=== PATIENT | male | born 1940 | race Caucasian/White ===

== ENCOUNTER → 2018-08-20 | Outpatient (CLI) | payer MEDICARE, OTHER ==
--- NOTE | 2018-08-20 12:55 | US ---
EXAMINATION TYPE: US carotid duplex BILAT DATE OF EXAM: 08/20/2018 COMPARISON: NONE CLINICAL HISTORY: I65.23 Occlusion/Stenosis Bilateral Carotid Arteri. R/O carotid artery stenosis. EXAM MEASUREMENTS: RIGHT: Peak Systolic Velocity (PSV) cm/sec ----- Right CCA: 90.8 ----- Right ICA: 115.7 ----- Right ECA: 268.4 ICA/CCA ratio: 1.3 RIGHT: End Diastole cm/sec ----- Right CCA: 14.9 ----- Right ICA: 25.6 ----- Right ECA: 3.6 LEFT: Peak Systolic Velocity (PSV) cm/sec ----- Left CCA: 84.9 ----- Left ICA: 118.9 ----- Left ECA: 279.0 ICA/CCA ratio: 1.4 LEFT: End Diastole cm/sec ----- Left CCA: 16.0 ----- Left ICA: 22.0 ----- Left ECA: 10.7 VERTEBRALS (direction of flow): Right Vertebral: Antegrade Left Vertebral: Antegrade Rhythm: Normal IMPRESSION: Moderate wall changes seen at bilateral carotid bifurcations. Echogenic plaque with shado wing seen bilateral carotid bulbs. Elevated velocities greater than 125 cm/s obtained bilateral ECAs. Criteria for Assigning % of Stenosis / Diameter reduction (Estimation based on the indirect measurements of the internal carotid artery velocities (ICA PSV). 1. Normal (no stenosis)=ICA PSV < 125 cm/s: ratio < 2.0: ICA EDV<40 cm/s. 2. Less than 50% stenosis=ICA PSV < 125 cm/s: ratio < 2.0: ICA EDV<40 cm/s. 3. 50 to 69% stenosis=ICA PSV of 125 to 230 cm/s: ration 2.0 ? 4.0: ICA EDV 40-100 cm/s. 4. Greater than 70% stenosis to near occlusion= ICA PSV > 230 cm/s: ratio > 4.0: ICA EDV > 100 cm/s. 5. Near occlusion= ICA PSV velocities may be low or undetectable: variable ratio and ICA EDV. 6. Total occlusion=unable to detect flow.
== END | disposition home or self-care (01) ==
LOC: RADUSWWP 10:50
PROVIDERS: ATTEND Family Medicine
DX: I65.23 Occlusion and stenosis of bilateral carotid arteries (principal)
CPT/HCPCS: 93880

== ENCOUNTER 2022-05-16 11:16 | Inpatient (IN) | payer MEDICARE, OTHER ==
[2022-05-16] MEDS ORDERED: SODIUM CHLORIDE 0.9% 500 ML 500 ML IV STA (14:07)
[2022-05-16 14:42] LABS: INR 0.9 (<1.2); Partial Thromboplastin Time 24.7 sec (22.0-30.0); Prothrombin Time 9.7 sec (9.0-12.0)
[2022-05-16 14:46] LABS: ALT 29 U/L (4-49); AST 25 U/L (17-59); African American GFR (CKD) >90 (>60 ml/min/1.73 sqM); Albumin 3.7 g/dL (3.5-5.0); Alkaline Phosphatase 85 U/L (38-126); Anion Gap 3 mmol/L; Blood Urea Nitrogen 24 mg/dL (9-20); Calcium 8.3 mg/dL (8.4-10.2); Carbon Dioxide 29 mmol/L (22-30); Chloride 107 mmol/L (98-107); Glucose 120 mg/dL (74-99); Magnesium 2.1 mg/dL (1.6-2.3); Non-African American GFR(CKD) 81 (>60 ml/min/1.73 sqM); Potassium 4.1 mmol/L (3.5-5.1); Sodium 139 mmol/L (137-145); Total Bilirubin 0.9 mg/dL (0.2-1.3); Total Protein 6.2 g/dL (6.3-8.2)
[2022-05-16 15:05] LABS: Anisocytosis Moderate; HCT 24.1 % (39.0-53.0); HGB 7.3 gm/dL (13.0-17.5); Hypochromasia Marked; MCH 33.1 pg (25.0-35.0); MCHC 30.4 g/dL (31.0-37.0); MCV 109.1 fL (80.0-100.0); Macrocytosis Marked; Mean Platelet Volume 10.9; Platelet Count 208 k/uL (150-450); Poikilocytosis Moderate; RBC 2.21 m/uL (4.30-5.90); RDW 21.6 % (11.5-15.5)
[2022-05-16 15:10] LABS: WBC 1.1 k/uL (3.8-10.6)
--- NOTE | 2022-05-16 15:10 | ED ---
General Adult HPI - General Chief complaint: GI Bleed Stated complaint: abn labs Time Seen by Provider: 05/16/22 13:53 Source: patient, family, RN notes reviewed, old records reviewed Mode of arrival: ambulatory Limitations: altered mental status (Dementia) - History of Present Illness Initial comments: This is an 81-year-old male who presents emergency Department with family giving most the history because of the patient's significant dementia. Patient is sent in because he [facility] they found that his hemoglobin had dropped and family did noted bright red blood and some clotting in his diaper. He himself has not been complaining of anything. Family states she's always tired and they have not noticed any change. He also complains on a regular basis of shortness of breath he doesn't look any more short of breath and he has. There's been no history of fever chills the patient had no history of vomiting or diarrhea. The patient's had no recent history of any trauma. - Related Data Allergies Allergy/AdvReac Type Severity Reaction Status Date / Time No Known Allergies Allergy Verified 05/16/22 11:40 Review of Systems ROS Statement: Those systems with pertinent positive or pertinent negative responses have been documented in the HPI. ROS Other: All systems not noted in ROS Statement are negative. Past Medical History Past Medical History: Coronary Artery Disease (CAD), Chest Pain / Angina, Hypertension Additional Past Medical History / Comment(s): Mitral valve, Anemia History of Any Multi-Drug Resistant Organisms: None Reported Past Surgical History: Hernia Repair Additional Past Surgical History / Comment(s): Renal Biopsy Past Psychological History: No Psychological Hx Reported Smoking Status: Never smoker Past Alcohol Use History: None Reported Past Drug Use History: None Reported General Exam - General Exam Comments Initial Comments: GENERAL: Patient is well-developed and well-nourished. Patient is nontoxic and well- hydrated and is in mild distress. ENT: Neck is soft and supple. No significant lymphadenopathy is noted. Oropharynx is clear. Moist mucous membranes. Neck has full range of motion without eliciting any pain. EYES: The sclera were anicteric and conjunctiva are pale. Extraocular movements were intact and pupils were equal round and reactive to light. Eyelids were unremarkable. PULMONARY: Unlabored respirations. Good breath sounds bilaterally. No audible rales rhonchi or wheezing was noted. CARDIOVASCULAR: There is a regular rate and rhythm without any murmurs gallops or rubs. ABDOMEN: Soft and nontender with normal bowel sounds. SKIN: Skin is clear with no lesions or rashes and otherwise unremarkable. NEUROLOGIC: Patient is alert and oriented 2. Cranial nerves II through XII are grossly intact. Motor and sensory are also intact. Normal speech, volume and content. Symmetrical smile. MUSCULOSKELETAL: Normal extremities with adequate strength and full range of motion. LYMPHATICS: No significant lymphadenopathy is noted PSYCHIATRIC: Normal psychiatric evaluation. Limitations: no limitations Course Vital Signs 05/16/22 11:36 Temperature 97.9 F Pulse Rate 60 Respiratory 22 Rate Blood Pressure 111/55 O2 Sat by Pulse 97 Oximetry Medical Decision Making - Medical Decision Making EKG was interpreted by me. EKG shows atrial fibrillation with occasional PVC at 79 bpm QRS is 119 QT interval 392 QTC is 427. Patient's EKG shows no ST segment elevation or depression. Patient's troponin came back elevated. Patient is already on heparin. Patient's hemoglobin was 7.3 again I have no comparison at this time. I interpret the chest x-ray. Chest x-ray showed no acute abnormality or infiltrate or pleural effusion. I spoke with Dr. Tejeda and he agreed to admit the patient admitted the patient I consult cardiology because of the patient's rectal bleeding and did not start the patient at this time on heparin especially because he is having no chest pain or difficulty breathing or - Lab Data Result diagrams: 05/16/22 14:09 05/16/22 14:09 Lab Results 05/16/22 05/16/22 05/16/22 Range/Units 13:50 14:09 14:09 WBC 1.1 L* (3.8-10.6) k/uL RBC 2.21 L (4.30-5.90) m/uL Hgb 7.3 L (13.0-17.5) gm/dL Hct 24.1 L (39.0-53.0) % MCV 109.1 H (80.0-100.0) fL MCH 33.1 (25.0-35.0) pg MCHC 30.4 L (31.0-37.0) g/dL RDW 21.6 H (11.5-15.5) % Plt Count 208 (150-450) k/uL MPV 10.9 Neutrophils % (Manual) 50 % Lymphocytes % (Manual) 42 % Monocytes % (Manual) 6 % Eosinophils % (Manual) 2 % Neutrophils # BATCH ROOM TECHNICIAN Neutrophils # (Manual) 0.55 L (1.3-7.7) k/uL Lymphocytes # (Manual) 0.46 L (1.0-4.8) k/uL Monocytes # (Manual) 0.07 (0-1.0) k/uL Eosinophils # (Manual) 0.02 (0-0.7) k/uL Nucleated RBCs 1 H (0-0) /100 WBC Manual Slide Review Performed Polychromasia Present Hypochromasia Marked Poikilocytosis Moderate Anisocytosis Moderate Anisocytosis (manual) Present Macrocytosis Marked A PT 9.7 (9.0-12.0) sec INR 0.9 (<1.2) APTT 24.7 (22.0-30.0) sec Sodium (137-145) mmol/L Potassium (3.5-5.1) mmol/L Chloride (98-107) mmol/L Carbon Dioxide (22-30) mmol/L Anion Gap mmol/L BUN (9-20) mg/dL Creatinine (0.66-1.25) mg/dL Est GFR (CKD-EPI)AfAm (>60 ml/min/1.73 sqM) Est GFR (CKD-EPI)NonAf (>60 ml/min/1.73 sqM) Glucose (74-99) mg/dL Calcium (8.4-10.2) mg/dL Magnesium (1.6-2.3) mg/dL Total Bilirubin (0.2-1.3) mg/dL AST (17-59) U/L ALT (4-49) U/L Alkaline Phosphatase (38-126) U/L Troponin I (0.000-0.034) ng/mL Total Protein (6.3-8.2) g/dL Albumin (3.5-5.0) g/dL Blood Type Blood Type Confirm O Positive Blood Type Recheck Bld Type Recheck Status Antibody Screen Spec Expiration Date 05/16/22 05/16/22 05/16/22 Range/Units 14:09 14:09 14:09 WBC (3.8-10.6) k/uL RBC (4.30-5.90) m/uL Hgb (13.0-17.5) gm/dL Hct (39.0-53.0) % MCV (80.0-100.0) fL MCH (25.0-35.0) pg MCHC (31.0-37.0) g/dL RDW (11.5-15.5) % Plt Count (150-450) k/uL MPV Neutrophils % (Manual) % Lymphocytes % (Manual) % Monocytes % (Manual) % Eosinophils % (Manual) % Neutrophils # Neutrophils # (Manual) (1.3-7.7) k/uL Lymphocytes # (Manual) (1.0-4.8) k/uL Monocytes # (Manual) (0-1.0) k/uL Eosinophils # (Manual) (0-0.7) k/uL Nucleated RBCs (0-0) /100 WBC Manual Slide Review Polychromasia Hypochromasia Poikilocytosis Anisocytosis Anisocytosis (manual) Macrocytosis PT (9.0-12.0) sec INR (<1.2) APTT (22.0-30.0) sec Sodium 139 (137-145) mmol/L Potassium 4.1 (3.5-5.1) mmol/L Chloride 107 (98-107) mmol/L Carbon Dioxide 29 (22-30) mmol/L Anion Gap 3 mmol/L BUN 24 H (9-20) mg/dL Creatinine 0.88 (0.66-1.25) mg/dL Est GFR (CKD-EPI)AfAm >90 (>60 ml/min/1.73 sqM) Est GFR (CKD-EPI)NonAf 81 (>60 ml/min/1.73 sqM) Glucose 120 H (74-99) mg/dL Calcium 8.3 L (8.4-10.2) mg/dL Magnesium 2.1 (1.6-2.3) mg/dL Total Bilirubin 0.9 (0.2-1.3) mg/dL AST 25 (17-59) U/L ALT 29 (4-49) U/L Alkaline Phosphatase 85 (38-126) U/L Troponin I 0.152 H* (0.000-0.034) ng/mL Total Protein 6.2 L (6.3-8.2) g/dL Albumin 3.7 (3.5-5.0) g/dL Blood Type O Positive Blood Type Confirm Blood Type Recheck No Previous Record Bld Type Recheck Status CABO Indicated Antibody Screen NEGATIVE Spec Expiration Date 05/19/20222308 Disposition Clinical Impression: Non-STEMI (non-ST elevated myocardial infarction), GI bleed, Anemia Disposition: ADMITTED IP TO THIS HOSP Referrals: Osmani Villaseñor DO [Primary Care Provider] - 1-2 days Time of Disposition: 15:55
[2022-05-16 15:33] LABS: Anisocytosis (M) Present; Eosinophils # (M) 0.02 k/uL (0-0.7); Lymphocytes # (M) 0.46 k/uL (1.0-4.8); Monocytes # (M) 0.07 k/uL (0-1.0); Neutrophils # (M) 0.55 k/uL (1.3-7.7); Neutrophils % (M) 50 %; Nucleated Red Blood Cells 1 /100 WBC (0-0); Polychromasia Present; Total Cells Counted 200
--- NOTE | 2022-05-16 16:21 | XR ---
EXAMINATION TYPE: XR chest 2V DATE OF EXAM: 05/16/2022 COMPARISON: NONE HISTORY: Difficulty in breathing. TECHNIQUE: Frontal and lateral views of the chest are obtained. FINDINGS: The osseous structures are demineralized. There is cardiomegaly with atherosclerotic thora cic aorta. There are increased interstitial markings bilaterally. There is small to tiny left greater than right pleural effusions. IMPRESSION: Suspect CHF exacerbation and there is cardiomegaly with mild interstitial edema and smal l to tiny bilateral pleural effusions. Correlate clinically.
[2022-05-16] MEDS ORDERED: IPRATROPIUM-ALBUTEROL 3 ML NEB INHALATION PRN (22:29)
[2022-05-16] MEDS: PANTOPRAZOLE 40 MG/10 ML VIAL IVP SCH (23:13)
[2022-05-16] MEDS: risperiDONE 0.25 MG TAB PO SCH (23:13)
[2022-05-16] MEDS: METOPROLOL TARTRATE 25 MG TAB PO SCH (23:13)
--- NOTE | 2022-05-17 04:33 | HP ---
HISTORY AND PHYSICAL CHIEF COMPLAINT: GI bleed. HISTORY OF PRESENT ILLNESS: This is an 81-year-old gentleman with a past medical history of multiple medical problems including dementia, also had CAD. The patient was admitted in [facility] for some time and subsequently referred to [facility] on the [place] last week, but the patient felt much better. The patient signed out and the patient was noted to have bleeding in the diaper and the patient came to [facility]. Hemoglobin was found to be 7.3, white count is 1.1. The patient was admitted for further evaluation and treatment. Troponin was found to be 0.152 also. There is no history of any fever, rigors, chills. The patient is unable to provide a history, most of the history is taken by discussion with staff and discussion with the family members at the bedside. PAST MEDICAL HISTORY: Reviewed, include CAD. The rest of history and chart are reviewed. HOME MEDICATIONS: List is not available. ALLERGIES: None. FAMILY HISTORY: Could not be taken because of the patient's dementia. SOCIAL HISTORY: Could not be taken because of the patient's dementia. REVIEW OF SYSTEMS: Could not be taken because of the patient's dementia. PHYSICAL EXAMINATION: VITAL SIGNS: Pulse is 60, blood pressure ntd_, respirations 22. HEENT: Conjunctivae pale. Oral mucosa moist. CARDIOVASCULAR: S1, S2 irregular. RESPIRATIONS: Breath sounds diminished at the bases. ABDOMEN: Soft, nontender. LEGS: No edema. No swelling. NERVOUS SYSTEM: No focal deficits. SKIN: No ulcers, rash, bleeding. JOINTS: No active deforming arthropathy. LABS: Reviewed. ASSESSMENT: 1. Anemia with acute lower gastrointestinal bleeding, possibly. 2. Leukopenia. 3. Troponin 0.152. 4. History of atrial fibrillation. 5. History of coronary artery disease. 6. Hypertension. 7. Multiple medical issues. RECOMMENDATIONS AND DISCUSSION: This is an 81-year-old gentleman who presented with multiple complex medical issues, we will monitor the patient closely. Continue the current medication. I would recommend 1 unit transfusion for symptomatic anemia, otherwise hold antiplatelets and anticoagulants. I would recommend Gastroenterology consultation for possible endoscopes. Repeat labs. Prognosis guarded because of multiple complex medical issues. Discussed with the patient and family. Further recommendations to follow. MMODL / IJN: [id number] / MTDD
[2022-05-17 08:06] LABS: Potassium 4.4 mmol/L (3.5-5.1)
[2022-05-17 08:44] LABS: Anisocytosis Moderate; HCT 21.6 % (39.0-53.0); HGB 7.1 gm/dL (13.0-17.5); Hypochromasia Marked; MCH 35.9 pg (25.0-35.0); MCHC 32.7 g/dL (31.0-37.0); MCV 109.7 fL (80.0-100.0); Macrocytosis Marked; Mean Platelet Volume 12.2; Platelet Count 161 k/uL (150-450); Poikilocytosis Slight; RBC 1.97 m/uL (4.30-5.90); RDW 21.6 % (11.5-15.5)
[2022-05-17] MEDS: CYANOCOBALAMIN 500 MCG TAB PO SCH (08:46)
[2022-05-17] MEDS: PANTOPRAZOLE 40 MG/10 ML VIAL IVP SCH (08:47)
[2022-05-17] MEDS: risperiDONE 0.25 MG TAB PO SCH ×2 (08:47→20:23)
[2022-05-17] MEDS: METOPROLOL TARTRATE 25 MG TAB PO SCH ×2 (08:47→20:23)
[2022-05-17 08:50] LABS: WBC 1.1 k/uL (3.8-10.6)
[2022-05-17 10:22] LABS: Eosinophils # (M) 0.02 k/uL (0-0.7); Lymphocytes # (M) 0.66 k/uL (1.0-4.8); Neutrophils # (M) 0.32 k/uL (1.3-7.7); Neutrophils % (M) 29 %; Nucleated Red Blood Cells 0 /100 WBC (0-0); Total Cells Counted 100
[2022-05-17 10:23] LABS: Polychromasia Present
[2022-05-17 10:24] LABS: Poikilocytosis (M) Present
[2022-05-17 10:51] LABS: % Iron Saturation 35.46 (15.00-50.00)
--- NOTE | 2022-05-17 13:08 | P.CRDCN ---
History of Present Illness Consult date: 05/17/22 Requesting physician: Citlali Tejeda Reason for Consult (text): non-STEMI Chief complaint: low hgb History of present illness: This is a pleasantly confused 81-year-old gentleman is a poor historian and most of the HPI was obtained from the chart and the son at the bedside. He has an apparent history of hypertension, atrial fibrillation for which she was previously on anticoagulation for unsure of the name but most recently has not been anticoagulated, dementia worsening over the last few years, rheumatic heart disease. He was apparently recently admitted and treated for pneumonia at [facility] and subsequently [facility] on [facility] where he was found to have anemia and leukopenia. Records are not available to me at this time. He was discharged to [facility] for rehab but was subsequently discharged home with family. He was apparently called by his primary care physician Dr. Khalil because his hemoglobin was around 7.1 as an outpatient and he was advised to go to the emergency department. There is some question of some blood noted in his depends but according to the son it was only a few small splatters of blood and he feels he may have hemorrhoids. Upon presentation hemoglobin was noted to be 7.3. He EKG showed atrial fibrillation with PVCs and controlled heart rate. White blood cell count 1.1. We were asked to see the patient in consultation for elevated troponins of 0.152, 0.145 and 0.142. According to the son he's had no clear complaints of chest discomfort. He has been complaining of some shortness of breath as well as lower extremity edema. Denies any palpitations or dizziness. He's had no syncope or near syncope. Denies any orthopnea or PND. Chest x-ray suspicious for CHF exacerbation with cardiomegaly and mild interstitial edema as well as small to tiny bilateral pleural effusions. Past Medical History Past Medical History: Coronary Artery Disease (CAD), Chest Pain / Angina, Hypertension Additional Past Medical History / Comment(s): Mitral valve, Anemia History of Any Multi-Drug Resistant Organisms: None Reported Past Surgical History: Hernia Repair Additional Past Surgical History / Comment(s): Renal Biopsy Past Psychological History: No Psychological Hx Reported Smoking Status: Never smoker Past Alcohol Use History: None Reported Past Drug Use History: None Reported - Past Family History Son(s) Family Medical History: Diabetes Mellitus Medications and Allergies Home Medications Medication Instructions Recorded Confirmed Type Aspirin [Vazalore] 81 mg PO DAILY 05/16/22 05/16/22 History Atorvastatin [Lipitor] 20 mg PO HS 05/16/22 05/16/22 History Cyanocobalamin (Vitamin B-12) 1,000 mcg PO DAILY 05/16/22 05/16/22 History [Vitamin B-12] Enoxaparin [Lovenox] 40 mg SQ DAILY 05/16/22 05/16/22 History Ipratropium-Albuterol Nebulize 3 ml INHALATION RT-Q12H PRN 05/16/22 05/16/22 History [Duoneb 0.5 mg-3 mg/3 ml Soln] Metoprolol Tartrate [Lopressor] 50 mg PO TID 05/16/22 05/16/22 History risperiDONE [RisperDAL] 0.25 mg PO BID 05/16/22 05/16/22 History Allergies Allergy/AdvReac Type Severity Reaction Status Date / Time No Known Allergies Allergy Verified 05/16/22 16:12 Physical Exam Vitals: Vital Signs Temp Pulse Pulse Resp BP BP Pulse Ox 05/17/22 08:00 97.5 F L 52 L 18 144/74 99 05/17/22 04:00 52 L 16 156/76 98 05/17/22 02:00 74 05/16/22 23:22 97.5 F L 74 20 131/57 99 05/16/22 21:15 106 H 18 05/16/22 21:00 97.8 F 125 H 18 111/88 95 05/16/22 18:50 99 18 135/71 99 05/16/22 17:30 96 15 125/86 99 05/16/22 17:00 88 26 H 119/68 100 05/16/22 16:30 73 20 131/97 100 05/16/22 16:00 81 21 145/102 99 05/16/22 15:30 82 23 145/102 96 05/16/22 15:00 87 11 L 133/69 94 L 05/16/22 14:14 98 05/16/22 11:36 97.9 F 60 22 111/55 97 Intake and Output 05/16/22 05/17/22 05/17/22 22:59 06:59 14:59 Output Total 100 Balance -100 Output: Urine 100 Other: Voiding Method Urinal # Voids 2 Weight 54.431 kg PHYSICAL EXAMINATION: This is a 81-year-old male in no apparent distress at the time of my examination. HEENT: Head is atraumatic, normocephalic. Pupils are equal, round. Sclerae anicteric. Conjunctivae are clear. Mucous membranes of the mouth are moist. Neck is supple. There is no elevated jugular venous pressure. No carotid bruit is heard. CHEST EXAMINATION: Lungs reveal diminished air entry bilaterally with faint b ibasilar crackles. No wheezes or rhonchi. Respirations even and nonlabored. HEART EXAMINATION: Heart regular rate and rhythm, positive S1 and S2. No S3. No S4. Systolic murmur. ABDOMEN: Soft, nontender. Bowel sounds are heard. No organomegaly noted. EXTREMITIES: 2+ peripheral pulses with evidence of mild peripheral edema and no calf tenderness noted. NEUROLOGIC EXAMINATION: Patient is awake, alert and oriented x1. Results 05/17/22 06:56 05/17/22 06:56 Cardiac Enzymes 05/16/22 05/16/22 05/17/22 Range/Units 14:09 14:09 00:16 AST 25 (17-59) U/L Troponin I 0.152 H* 0.145 H* (0.000-0.034) ng/mL 05/17/22 Range/Units 06:56 AST (17-59) U/L Troponin I 0.142 H* (0.000-0.034) ng/mL Coagulation 05/16/22 Range/Units 14:09 PT 9.7 (9.0-12.0) sec APTT 24.7 (22.0-30.0) sec CBC 05/16/22 05/17/22 Range/Units 14:09 06:56 WBC 1.1 L* 1.1 L* (3.8-10.6) k/uL RBC 2.21 L 1.97 L (4.30-5.90) m/uL Hgb 7.3 L 7.1 L (13.0-17.5) gm/dL Hct 24.1 L 21.6 L (39.0-53.0) % Plt Count 208 161 (150-450) k/uL Comprehensive Metabolic Panel 05/16/22 05/17/22 Range/Units 14:09 06:56 Sodium 139 139 (137-145) mmol/L Potassium 4.1 4.4 (3.5-5.1) mmol/L Chloride 107 108 H (98-107) mmol/L Carbon Dioxide 29 28 (22-30) mmol/L BUN 24 H 22 H (9-20) mg/dL Creatinine 0.88 0.93 (0.66-1.25) mg/dL Glucose 120 H 107 H (74-99) mg/dL Calcium 8.3 L 8.0 L (8.4-10.2) mg/dL AST 25 (17-59) U/L ALT 29 (4-49) U/L Alkaline Phosphatase 85 (38-126) U/L Total Protein 6.2 L (6.3-8.2) g/dL Albumin 3.7 (3.5-5.0) g/dL Current Medications Generic Name Dose Route Start Last Admin Trade Name Freq PRN Reason Stop Dose Admin Albuterol/Ipratropium 3 ml 05/16/22 22:29 Ipratropium-Albuterol 3 Ml Neb INHALATION RT-Q12H PRN Shortness Of Breath Atorvastatin Calcium 20 mg 05/17/22 21:00 Atorvastatin 20 Mg Tab PO HS HANK Cyanocobalamin 1,000 mcg 05/17/22 09:00 05/17/22 08:46 Cyanocobalamin 500 Mcg Tab PO 1,000 mcg DAILY HANK Administration Metoprolol Tartrate 25 mg 05/16/22 22:30 05/17/22 08:47 Metoprolol Tartrate 25 Mg Tab PO 25 mg BID HANK Administration Pantoprazole Sodium 40 mg 05/16/22 22:45 05/17/22 08:47 Pantoprazole 40 Mg/10 Ml Vial IVP 40 mg DAILY HANK Administration Risperidone 0.25 mg 05/16/22 22:30 05/17/22 08:47 Risperidone 0.25 Mg Tab PO 0.25 mg BID HANK Administration Intake and Output 05/16/22 05/17/22 05/17/22 22:59 06:59 14:59 Output Total 100 Balance -100 Output: Urine 100 Other: Voiding Method Urinal # Voids 2 Weight 54.431 kg 05/17/22 06:56 05/17/22 06:56 Assessment and Plan Assessment: #1 acute likely on chronic congestive heart failure, LV systolic function unknown at this time #2 anemia and leukopenia could represent malignancy #3 elevated troponins likely secondary to underlying anemia and heart failure however acute coronary event cannot be definitively ruled out the patient is not a candidate for aggressive cardiac workup at this time. #4 atrial fibrillation, likely chronic persistent, not currently anticoagulated likely secondary to anemia #5 rheumatic heart disease according to family #6 dementia, advanced Plan: From cardiology's perspective we'll obtain a 2-D echo with Doppler study to assess cardiac structure and function. Troponin elevation could be likely related to underlying anemia. At this time will hold off on anticoagulation. Diuresis the patient. We'll obtain records from [facility] and [facility]. Await further workup in regards to the anemia. We will continue to follow the patient provide further recommendations accordingly. HANDS PARTER note has been reviewed, I agree with a documented findings and plan of care. Patient was seen and examined.
--- NOTE | 2022-05-17 14:42 | P.CONS ---
History of Present Illness - Reason for Consult Consult date: 05/17/22 GI bleed Requesting physician: Aaron Jones - Chief Complaint anemia - History of Present Illness This is a pleasant 81-year-old male who presented to the emergency department for anemia. Patient has a past medical history including coronary artery disease hypertension, atrial fibrillation and severe dementia. Apparently patient resides in a long-term care facility and had blood work done and was anemic. Family members apparently stated that he had some blood clots and dark blood in his brief. HPI taken from chart as patient is pleasantly confused. Nursing is reporting has had no blood in his brief no blood in his stool. When asked patient denies any abdominal pain, no nausea or vomiting. The patient was also admitted for N-STEMI with cardiology on consult and reported acute likely on chronic congestive heart failure with elevated troponins likely secondary to underlying anemia and heart failure however acute coronary event cannot definitively be ruled out and patient is not candidate for aggressive cardiac workup. Review of Systems ROS unobtainable: due to mental status Past Medical History Past Medical History: Coronary Artery Disease (CAD), Chest Pain / Angina, Hypertension Additional Past Medical History / Comment(s): Mitral valve, Anemia History of Any Multi-Drug Resistant Organisms: None Reported Past Surgical History: Hernia Repair Additional Past Surgical History / Comment(s): Renal Biopsy Past Psychological History: No Psychological Hx Reported Smoking Status: Never smoker Past Alcohol Use History: None Reported Past Drug Use History: None Reported - Past Family History Son(s) Family Medical History: Diabetes Mellitus Medications and Allergies Home Medications Medication Instructions Recorded Confirmed Type Aspirin [Vazalore] 81 mg PO DAILY 05/16/22 05/16/22 History Atorvastatin [Lipitor] 20 mg PO HS 05/16/22 05/16/22 History Cyanocobalamin (Vitamin B-12) 1,000 mcg PO DAILY 05/16/22 05/16/22 History [Vitamin B-12] Enoxaparin [Lovenox] 40 mg SQ DAILY 05/16/22 05/16/22 History Ipratropium-Albuterol Nebulize 3 ml INHALATION RT-Q12H PRN 05/16/22 05/16/22 History [Duoneb 0.5 mg-3 mg/3 ml Soln] Metoprolol Tartrate [Lopressor] 50 mg PO TID 05/16/22 05/16/22 History risperiDONE [RisperDAL] 0.25 mg PO BID 05/16/22 05/16/22 History Allergies Allergy/AdvReac Type Severity Reaction Status Date / Time No Known Allergies Allergy Verified 05/16/22 16:12 Physical Exam Vitals: Vital Signs Temp Pulse Pulse Resp BP BP Pulse Ox 05/17/22 08:00 97.5 F L 52 L 18 144/74 99 05/17/22 04:00 52 L 16 156/76 98 05/17/22 02:00 74 05/16/22 23:22 97.5 F L 74 20 131/57 99 05/16/22 21:15 106 H 18 05/16/22 21:00 97.8 F 125 H 18 111/88 95 05/16/22 18:50 99 18 135/71 99 05/16/22 17:30 96 15 125/86 99 05/16/22 17:00 88 26 H 119/68 100 05/16/22 16:30 73 20 131/97 100 05/16/22 16:00 81 21 145/102 99 05/16/22 15:30 82 23 145/102 96 05/16/22 15:00 87 11 L 133/69 94 L 05/16/22 14:14 98 05/16/22 11:36 97.9 F 60 22 111/55 97 Intake and Output 05/16/22 05/17/22 05/17/22 22:59 06:59 14:59 Other: Voiding Method Urinal # Voids 2 Weight 54.431 kg General appearance: The patient is alert, oriented to self, appears in no acute distress. HET: Head is normocephalic and atraumatic. Conjunctiva pink. Sclera anicteric. Neck: Supple without lymphadenopathy. Trachea midline. Heart: S1 S2. Regular rate and rhythm. Lungs: Clear to auscultation. Abdomen: Soft, nontender, nondistended with bowel sounds. No guarding or rigidity. Skin: No rashes. No jaundice. Extremities: Normal skin color and turgor. No pedal edema. Neurological: No focal deficits. Alert and oriented to self. He is pleasantly confused. Results CBC & Chem 7: 05/17/22 06:56 05/17/22 06:56 Labs: Abnormal Lab Results - Last 24 Hours (Table) 05/16/22 05/16/22 05/16/22 Range/Units 14:09 14:09 14:09 WBC 1.1 L* (3.8-10.6) k/uL RBC 2.21 L (4.30-5.90) m/uL Hgb 7.3 L (13.0-17.5) gm/dL Hct 24.1 L (39.0-53.0) % MCV 109.1 H (80.0-100.0) fL MCH (25.0-35.0) pg MCHC 30.4 L (31.0-37.0) g/dL RDW 21.6 H (11.5-15.5) % Neutrophils # (Manual) 0.55 L (1.3-7.7) k/uL Lymphocytes # (Manual) 0.46 L (1.0-4.8) k/uL Nucleated RBCs 1 H (0-0) /100 WBC Macrocytosis Marked A Chloride (98-107) mmol/L BUN 24 H (9-20) mg/dL Glucose 120 H (74-99) mg/dL Calcium 8.3 L (8.4-10.2) mg/dL Troponin I 0.152 H* (0.000-0.034) ng/mL Total Protein 6.2 L (6.3-8.2) g/dL 05/17/22 05/17/22 05/17/22 Range/Units 00:16 06:56 06:56 WBC 1.1 L* (3.8-10.6) k/uL RBC 1.97 L (4.30-5.90) m/uL Hgb 7.1 L (13.0-17.5) gm/dL Hct 21.6 L (39.0-53.0) % MCV 109.7 H (80.0-100.0) fL MCH 35.9 H (25.0-35.0) pg MCHC (31.0-37.0) g/dL RDW 21.6 H (11.5-15.5) % Neutrophils # (Manual) (1.3-7.7) k/uL Lymphocytes # (Manual) (1.0-4.8) k/uL Nucleated RBCs (0-0) /100 WBC Macrocytosis Marked A Chloride (98-107) mmol/L BUN (9-20) mg/dL Glucose (74-99) mg/dL Calcium (8.4-10.2) mg/dL Troponin I 0.145 H* 0.142 H* (0.000-0.034) ng/mL Total Protein (6.3-8.2) g/dL /15/ Range/Units 06:56 WBC (3.8-10.6) k/uL RBC (4.30-5.90) m/uL Hgb (13.0-17.5) gm/dL Hct (39.0-53.0) % MCV (80.0-100.0) fL MCH (25.0-35.0) pg MCHC (31.0-37.0) g/dL RDW (11.5-15.5) % Neutrophils # (Manual) (1.3-7.7) k/uL Lymphocytes # (Manual) (1.0-4.8) k/uL Nucleated RBCs (0-0) /100 WBC Macrocytosis Chloride 108 H (98-107) mmol/L BUN 22 H (9-20) mg/dL Glucose 107 H (74-99) mg/dL Calcium 8.0 L (8.4-10.2) mg/dL Troponin I (0.000-0.034) ng/mL Total Protein (6.3-8.2) g/dL Assessment and Plan (1) Anemia Narrative/Plan: 81-year-old pleasantly confused male with a history of severe dementia came into the emergency department yesterday for anemia. According to the chart and the patient's family had stated that they did see some possible blood clots in his brief. Nursing has reported no blood in his breathing or bloody stools. Patient had been on Lovenox has a history of coronary artery disease and atrial fibrillation. When asked the patient denies any blood in his stool, denies any abdominal pain, nausea or vomiting. On admission patient had a hemoglobin of 7.3, gastroenterology was consulted for possible GI bleed. Patient with a hyperchromic macrocytic anemia with leukopenia. Iron studies ordered as well as ferritin which are not consistent with an iron deficiency anemia. Recommend further cardiac workup as well as consulted hematology/oncology. No plans at this time for endoscopic evaluation. Current Visit: Yes Status: Acute Code(s): D64.9 - ANEMIA, UNSPECIFIED SNOMED Code(s): 850051845 (2) Non-STEMI (non-ST elevated myocardial infarction) Current Visit: Yes Status: Acute Code(s): I21.4 - NON-ST ELEVATION (NSTEMI) MYOCARDIAL INFARCTION SNOMED Code(s): 30735300 (3) Atrial fibrillation Current Visit: Yes Status: Acute Code(s): I48.91 - UNSPECIFIED ATRIAL FIBRILLATION SNOMED Code(s): 49484147 (4) Dementia Current Visit: Yes Status: Acute Code(s): F03.90 - UNSP DEMENTIA, UNSP SEVERITY, WITHOUT BEH/PSYCH/MOOD/ANX SNOMED Code(s): 31730406 (5) Coronary artery disease Current Visit: Yes Status: Acute Code(s): I25.10 - ATHSCL HEART DISEASE OF [place] CORONARY ARTERY W/O ANG PCTRS SNOMED Code(s): 20361226 Plan: 1. Continue symptomatic and supportive care 2. Patient may have regular diet 3. Daily CBC, transfuse for hemoglobin less than 7 4. Anemia workup ordered and reviewed, iron studies neck consistent with iron deficiency anemia 5. Recommend consultation to hematology 6. Continue with recommendations and workup from cardiology 7. Complains and endoscopic evaluation at this time Thank you for this consultation, we will continue to follow. Dr. Jos Luevano I agree with the dictator's note, documented as a scribe by Lana Kennedy.
[2022-05-17] MEDS ORDERED: QUEtiapine 25 MG TAB PO STA (16:48)
[2022-05-17] MEDS: FUROSEMIDE 10 MG/ML 2 ML VIAL IV SCH ×2 (17:08→22:56)
[2022-05-17] MEDS ORDERED: ONDANSETRON 4 MG/2 ML VIAL IVP STA (18:51)
[2022-05-17] MEDS ORDERED: ATORVASTATIN 20 MG TAB PO SCH (21:00)
--- NOTE | 2022-05-18 06:44 | PN ---
PROGRESS NOTE DATE OF SERVICE: 05/17/2022 SUBJECTIVE: This 81-year-old gentleman was admitted with GI bleed, is being evaluated at this time. Hemoglobin is 7.1, white count is also at 1.1. There is no history of any fever, rigors, or chills. OBJECTIVE: VITAL SIGNS: Pulse is 52, blood pressure 140/72, respirations 18. HEENT: Conjunctiva pale. CARDIOVASCULAR: S1, S2 muffled. ABDOMEN: Soft, nontender. NERVOUS SYSTEM: Nonfocal. LABORATORY DATA: Reviewed. ASSESSMENT: 1. Acute gastrointestinal bleed for evaluation, possible EGD. 2. Leukopenia. 3. Troponin 0.152. 4. History of atrial fibrillation. 5. History of coronary artery disease. 6. Hypertension. 7. Multiple medical issues. RECOMMENDATIONS AND DISCUSSION: Recommend to continue current management and symptomatic treatment. I would recommend 1 unit transfusion for symptomatic anemia at this time. Otherwise, EGD by Gastroenterology. Repeat labs in the morning. Once the patient is stable and if the EGD is negative, possible discharge in the next 24 to 48 hours. MMODL / IJN: [id number] /
[2022-05-18] MEDS ORDERED: ONDANSETRON 4 MG TAB PO PRN (07:15)
[2022-05-18 07:50] LABS: African American GFR (CKD) 72 (>60 ml/min/1.73 sqM); Anion Gap 4 mmol/L; Blood Urea Nitrogen 22 mg/dL (9-20); Calcium 8.3 mg/dL (8.4-10.2); Carbon Dioxide 29 mmol/L (22-30); Chloride 104 mmol/L (98-107); Glucose 95 mg/dL (74-99); Non-African American GFR(CKD) 62 (>60 ml/min/1.73 sqM); Potassium 4.6 mmol/L (3.5-5.1); Sodium 137 mmol/L (137-145)
[2022-05-18 08:14] LABS: Anisocytosis Moderate; HCT 25.5 % (39.0-53.0); HGB 8.4 gm/dL (13.0-17.5); Hypochromasia Marked; MCH 35.3 pg (25.0-35.0); MCHC 32.9 g/dL (31.0-37.0); MCV 107.2 fL (80.0-100.0); Macrocytosis Marked; Mean Platelet Volume 10.7; Platelet Count 184 k/uL (150-450); Poikilocytosis Moderate; RBC 2.38 m/uL (4.30-5.90); RDW 22.4 % (11.5-15.5)
[2022-05-18 08:32] LABS: WBC 1.4 k/uL (3.8-10.6)
[2022-05-18] MEDS: METOPROLOL TARTRATE 25 MG TAB PO SCH (09:01)
[2022-05-18] MEDS: risperiDONE 0.25 MG TAB PO SCH (09:01)
[2022-05-18] MEDS: CYANOCOBALAMIN 500 MCG TAB PO SCH (09:01)
[2022-05-18] MEDS: FUROSEMIDE 10 MG/ML 2 ML VIAL IV SCH (09:01)
[2022-05-18] MEDS: PANTOPRAZOLE 40 MG/10 ML VIAL IVP SCH (09:01)
[2022-05-18 09:08] VITALS: RESP 16; TEMP 97.6
[2022-05-18 09:29] LABS: Eosinophils # (M) 0.04 k/uL (0-0.7); Nucleated Red Blood Cells 3 /100 WBC (0-0)
[2022-05-18 09:34] LABS: Band Neutrophils % 1 %; Neutrophils % (M) 33 %
[2022-05-18 09:35] LABS: Polychromasia Present; Total Cells Counted 200
[2022-05-18 10:42] VITALS: BMI 13.8
[2022-05-18 12:22] LABS: Rheumatoid Factor, Qnt <10 IU/mL (0-15)
[2022-05-18 12:37] VITALS: BP 130/88; PULSE 55
--- NOTE | 2022-05-18 13:08 | P.CONS ---
History of Present Illness - Reason for Consult Consult date: 05/18/22 anemia Requesting physician: Danyell Mancera - Chief Complaint Abnormal lab - History of Present Illness Mister Butterfield is a pleasant 81-year-old male, mild confusion, brought to ER by family who reported that he was sent in [facility]. Had acute drop in Hgb, reported that there was bright red blood and some clotting in brief. Pt States that he thinks he saw some blood after cleaning himself. Patient is not able to surgery where he was but he knows for his hat is, he denies SOB, difficulty swallowing, SOB, pain. No blee ding Reported by staff. Review of Systems ROS unobtainable: due to mental status Past Medical History Past Medical History: Coronary Artery Disease (CAD), Chest Pain / Angina, Hypertension Additional Past Medical History / Comment(s): Mitral valve, Anemia History of Any Multi-Drug Resistant Organisms: None Reported Past Surgical History: Hernia Repair Additional Past Surgical History / Comment(s): Renal Biopsy Past Psychological History: No Psychological Hx Reported Smoking Status: Never smoker Past Alcohol Use History: None Reported Past Drug Use History: None Reported - Past Family History Son(s) Family Medical History: Diabetes Mellitus Medications and Allergies Home Medications Medication Instructions Recorded Confirmed Type Aspirin [Vazalore] 81 mg PO DAILY 05/16/22 05/16/22 History Atorvastatin [Lipitor] 20 mg PO HS 05/16/22 05/16/22 History Cyanocobalamin (Vitamin B-12) 1,000 mcg PO DAILY 05/16/22 05/16/22 History [Vitamin B-12] Enoxaparin [Lovenox] 40 mg SQ DAILY 05/16/22 05/16/22 History Ipratropium-Albuterol Nebulize 3 ml INHALATION RT-Q12H PRN 05/16/22 05/16/22 History [Duoneb 0.5 mg-3 mg/3 ml Soln] Metoprolol Tartrate [Lopressor] 50 mg PO TID 05/16/22 05/16/22 History risperiDONE [RisperDAL] 0.25 mg PO BID 05/16/22 05/16/22 History Allergies Allergy/AdvReac Type Severity Reaction Status Date / Time No Known Allergies Allergy Verified 05/16/22 16:12 Physical Exam Vitals: Vital Signs Temp Pulse Pulse Resp BP BP Pulse Ox 05/18/22 12:00 55 L 16 130/88 99 05/18/22 08:00 97.6 F 50 L 16 167/56 97 05/18/22 04:00 98.0 F 62 118/79 05/18/22 00:56 17 05/17/22 20:00 97.9 F 51 L 17 129/58 98 05/17/22 17:35 97.5 F L 116 H 20 157/73 98 05/17/22 15:59 97.6 F 98 16 133/68 99 05/17/22 15:39 97.5 F L 48 L 18 142/68 99 05/17/22 15:29 98.0 F 88 18 131/71 100 Intake and Output 05/17/22 05/18/22 05/18/22 22:59 06:59 14:59 Intake Total 279 240 Output Total 300 100 Balance -21 -100 240 Intake: Oral 240 Blood Product 279 Rc Pheresis 2 As3 Unit 279 [id number] Output: Urine 300 100 Other: Voiding Method Urinal Urinal Urinal # Voids 1 1 # Bowel Movements 1 Weight 42.5 kg 42.5 kg - Constitutional General appearance: average body habitus, cooperative, no acute distress - EENT Eyes: anicteric sclerae, EOMI ENT: hearing grossly normal - Respiratory Respiratory: bilateral: CTA - Cardiovascular Rhythm: irregularly irregular Abnormal Heart Sounds: no systolic murmur, no diastolic murmur, no rub, no S3 Gallop, no S4 Gallop, no click, no other leg Peripheral Edema: bilateral: None - Gastrointestinal General gastrointestinal: normal bowel sounds, soft - Integumentary Integumentary: normal - Musculoskeletal Musculoskeletal: generalized weakness - Psychiatric Patient is alert, oriented to self Results CBC & Chem 7: 05/18/22 07:03 05/18/22 07:03 Labs: Abnormal Lab Results - Last 24 Hours (Table) 05/16/22 05/17/22 05/18/22 Range/Units 14:09 06:56 07:03 WBC (3.8-10.6) k/uL RBC (4.30-5.90) m/uL Hgb (13.0-17.5) gm/dL Hct (39.0-53.0) % MCV (80.0-100.0) fL MCH (25.0-35.0) pg RDW (11.5-15.5) % Neutrophils # (Manual) (1.3-7.7) k/uL Lymphocytes # (Manual) (1.0-4.8) k/uL Nucleated RBCs (0-0) /100 WBC Macrocytosis BUN 22 H (9-20) mg/dL Calcium 8.3 L (8.4-10.2) mg/dL TSH 17.500 H (0.350-5.500) uIU/mL Free (T4) Reflex I 0.770 L (0.800-1.800) ng/dL Crossmatch See Detail 05/18/22 Range/Units 07:03 WBC 1.4 L* (3.8-10.6) k/uL RBC 2.38 L (4.30-5.90) m/uL Hgb 8.4 L (13.0-17.5) gm/dL Hct 25.5 L (39.0-53.0) % MCV 107.2 H (80.0-100.0) fL MCH 35.3 H (25.0-35.0) pg RDW 22.4 H (11.5-15.5) % Neutrophils # (Manual) 0.40 L* (1.3-7.7) k/uL Lymphocytes # (Manual) 0.80 L (1.0-4.8) k/uL Nucleated RBCs 3 H (0-0) /100 WBC Macrocytosis Marked A BUN (9-20) mg/dL Calcium (8.4-10.2) mg/dL TSH (0.350-5.500) uIU/mL Free (T4) Reflex I (0.800-1.800) ng/dL Crossmatch Assessment and Plan (1) Macrocytic anemia Current Visit: Yes Status: Acute Priority: High Code(s): D53.9 - NUTRITIONAL ANEMIA, UNSPECIFIED SNOMED Code(s): 04241096 (2) Leukopenia Current Visit: Yes Status: Acute Priority: High Code(s): D72.819 - DECREASED WHITE BLOOD CELL COUNT, UNSPECIFIED SNOMED Code(s): 78380628 Plan: Workup for bicytopenia ordered. Possibly related to dementia medications suppressing the bone marrow exacerbated by acute illness, recent pneumonia. Transfuse for hemoglobin less than 7. No acute intervention for leukopenia. CBC with differential in the a.m. Elevated troponins, A. fib, abn thryoid studies. Cardiology is seeing pt. attests: I have seen and examined patient, performed H&P, developed impression and plan of care. Discussed with dictator. Agree with documentation, dictated as a scribe.
[2022-05-18 13:17] LABS: Reticulocyte % 2.6 % (0.5-2.0)
--- NOTE | 2022-05-18 14:05 | P.PN ---
Subjective Progress Note Date: 05/18/22 Principal diagnosis: Anemia This is a pleasant 81-year-old male who presented to the emergency department for anemia. Patient has a past medical history including coronary artery disease hypertension, atrial fibrillation and severe dementia. Apparently patient resides in a long-term care facility and had blood work done and was anemic. Family members apparently stated that he had some blood clots and dark blood in his brief. HPI taken from chart as patient is pleasantly confused. Nursing is reporting has had no blood in his brief no blood in his stool. When asked patient denies any abdominal pain, no nausea or vomiting. The patient was also admitted for N-STEMI with cardiology on consult and reported acute likely on chronic congestive heart failure with elevated troponins likely secondary to underlying anemia and heart failure however acute coronary event cannot definitively be ruled out and patient is not candidate for aggressive cardiac workup. 05/18/2022. Patient was seen and examined today. He remains pleasantly confused with a sitter at the bedside. No reported blood in his stool or black stool. Hemoglobin is stable at 8.4. Hematology is on consult awaiting their recommendation. No plan for an endoscopic evaluation at this time. Spoke with patient's son who agrees on no endoscopic evaluation. Patient's son states he had one episode that they thought that they had noticed blood in his stool that was prior to coming into the hospital. Objective - Vital Signs Vital signs: Vital Signs Temp 98.0 F 05/18/22 04:00 Pulse 62 05/18/22 04:00 Resp 17 05/18/22 00:56 BP 118/79 05/18/22 04:00 Pulse Ox 98 05/17/22 20:00 FiO2 Intake & Output 05/17/22 05/18/22 05/18/22 18:59 06:59 18:59 Intake Total 279 Output Total 100 400 Balance 179 -400 Weight 42.5 kg Intake: Blood Product 279 Rc Pheresis 2 As3 Unit 279 [id number] Output: Urine 100 400 Other: Voiding Method Urinal Urinal # Voids 1 # Bowel Movements 1 - Exam General appearance: The patient is alert, oriented, appears in no acute distress. HET: Head is normocephalic and atraumatic. Conjunctiva pink. Sclera anicteric. Neck: Supple without lymphadenopathy. Abdomen: Soft, nontender, nondistended with bowel sounds. No guarding or rigidity. Extremities: Normal skin color and turgor. No pedal edema Skin: No rashes, no jaundice Neurological: No focal deficits. Alert and oriented. - Labs CBC & Chem 7: 05/18/22 07:03 05/18/22 07:03 Labs: Abnormal Lab Results - Last 24 Hours (Table) 05/16/22 05/17/22 05/17/22 Range/Units 14:09 06:56 06:56 WBC 1.1 L* (3.8-10.6) k/uL RBC 1.97 L (4.30-5.90) m/uL Hgb 7.1 L (13.0-17.5) gm/dL Hct 21.6 L (39.0-53.0) % MCV 109.7 H (80.0-100.0) fL MCH 35.9 H (25.0-35.0) pg RDW 21.6 H (11.5-15.5) % Neutrophils # (Manual) 0.32 L* (1.3-7.7) k/uL Lymphocytes # (Manual) 0.66 L (1.0-4.8) k/uL Macrocytosis Marked A Chloride (98-107) mmol/L BUN (9-20) mg/dL Glucose (74-99) mg/dL Calcium (8.4-10.2) mg/dL Transferrin (204.0-354.0) mg/dL Ferritin (22.0-322.0) ng/mL Troponin I 0.142 H* (0.000-0.034) ng/mL Vitamin B12 (200.0-944.0) pg/mL TSH (0.350-5.500) uIU/mL Free (T4) Reflex I (0.800-1.800) ng/dL Crossmatch See Detail 05/17/22 05/17/22 Range/Units 06:56 06:56 WBC (3.8-10.6) k/uL RBC (4.30-5.90) m/uL Hgb (13.0-17.5) gm/dL Hct (39.0-53.0) % MCV (80.0-100.0) fL MCH (25.0-35.0) pg RDW (11.5-15.5) % Neutrophils # (Manual) (1.3-7.7) k/uL Lymphocytes # (Manual) (1.0-4.8) k/uL Macrocytosis Chloride 108 H (98-107) mmol/L BUN 22 H (9-20) mg/dL Glucose 107 H (74-99) mg/dL Calcium 8.0 L (8.4-10.2) mg/dL Transferrin 196.0 L (204.0-354.0) mg/dL Ferritin 593.0 H (22.0-322.0) ng/mL Troponin I (0.000-0.034) ng/mL Vitamin B12 1066.0 H (200.0-944.0) pg/mL TSH 17.500 H (0.350-5.500) uIU/mL Free (T4) Reflex I 0.770 L (0.800-1.800) ng/dL Crossmatch Assessment and Plan (1) Anemia Narrative/Plan: 81-year-old pleasantly confused male with a history of severe dementia came into the emergency department yesterday for anemia. According to the chart and the patient's family had stated that they did see some possible blood clots in his brief. Nursing has reported no blood in his breathing or bloody stools. Patient had been on Lovenox has a history of coronary artery disease and atrial fibrillation. When asked the patient denies any blood in his stool, denies any abdominal pain, nausea or vomiting. On admission patient had a hemoglobin of 7.3, gastroenterology was consulted for possible GI bleed. Patient with a h yperchromic macrocytic anemia with leukopenia. Iron studies ordered as well as ferritin which are not consistent with an iron deficiency anemia. Recommend further cardiac workup as well as consulted hematology/oncology. No plans at this time for endoscopic evaluation. Hematology on consult. Spoke with patient's son and he agrees they do not wish to proceed with any endoscopic evaluation. Patient has had no further bleeding. Recommend outpatient follow-up with hematology Current Visit: Yes Status: Acute Code(s): D64.9 - ANEMIA, UNSPECIFIED SNOMED Code(s): 727617097 (2) Non-STEMI (non-ST elevated myocardial infarction) Current Visit: Yes Status: Acute Code(s): I21.4 - NON-ST ELEVATION (NSTEMI) MYOCARDIAL INFARCTION SNOMED Code(s): 07136347 (3) Atrial fibrillation Current Visit: Yes Status: Acute Code(s): I48.91 - UNSPECIFIED ATRIAL FIBRILLATION SNOMED Code(s): 45851345 (4) Dementia Current Visit: Yes Status: Acute Code(s): F03.90 - UNSP DEMENTIA, UNSP SEVERITY, WITHOUT BEH/PSYCH/MOOD/ANX SNOMED Code(s): 29464235 (5) Coronary artery disease Current Visit: Yes Status: Acute Code(s): I25.10 - ATHSCL HEART DISEASE OF [place] CORONARY ARTERY W/O ANG PCTRS SNOMED Code(s): 01632303 Plan: 1. Continue symptomatic and supportive care 2. Patient may have regular diet 3. Hematology consulted, appreciate their recommendations 4. Continue with recommendations and workup from cardiology 5. Patient's case was discussed with his son who agrees with no endoscopic evaluation. Thank you for this consultation, [facility] We will sign off at this time. Dr. Jos Luevano I agree with the dictator's note, documented as a scribe by Lana Kennedy.
--- NOTE | 2022-05-18 14:44 | P.PN ---
Subjective Progress Note Date: 05/18/22 This is a pleasantly confused 81-year-old gentleman is a poor historian and most of the HPI was obtained from the chart and the son at the bedside. He has an apparent history of hypertension, atrial fibrillation for which she was previously on anticoagulation for unsure of the name but most recently has not been anticoagulated, dementia worsening over the last few years, rheumatic heart disease. He was apparently recently admitted and treated for pneumonia at [facility] and subsequently [facility] on [place] where he was found to have anemia and leukopenia. Records are not available to me at this time. He was discharged to [facility] for rehab but was subsequently discharged home with family. He was apparently called by his primary care physician Dr. Khalil because his hemoglobin was around 7.1 as an outpatient and he was advised to go to the emergency department. There is some question of some blood noted in his depends but according to the son it was only a few small splatters of blood and he feels he may have hemorrhoids. Upon presentation hemoglobin was noted to be 7.3. He EKG showed atrial fibrillation with PVCs and controlled heart rate. White blood cell count 1.1. We were asked to see the patient in consultation for elevated troponins of 0.152, 0.145 and 0.142. According to the son he's had no clear complaints of chest discomfort. He has been complaining of some shortness of breath as well as lower extremity edema. Denies any palpitations or dizziness. He's had no syncope or near syncope. Denies any orthopnea or PND. Chest x-ray suspicious for CHF exacerbation with cardiomegaly and mild interstitial edema as well as small to t iny bilateral pleural effusions. 05/18/2022 Patient was seen and examined sitting up at side of the bed. He remains pleasantly confused. There is been no signs of bleeding. He's been evaluated by a hematology who feels by cytopenia could be related to dementia medications causing suppression of bone marrow lacerated by acute illness. He was also evaluated by GI and planning for an EGD. We continue to await records from [facility]. Echocardiogram has been ordered and is pending. Objective - Vital Signs Vital signs: Vital Signs Temp 97.6 F 05/18/22 08:00 Pulse 55 L 05/18/22 12:00 Resp 16 05/18/22 12:00 BP 130/88 05/18/22 12:00 Pulse Ox 99 05/18/22 12:00 FiO2 Intake & Output 05/17/22 05/18/22 05/18/22 18:59 06:59 18:59 Intake Total 279 240 Output Total 100 400 Balance 179 -400 240 Weight 42.5 kg 42.5 kg Intake: Oral 240 Blood Product 279 Rc Pheresis 2 As3 Unit 279 [id number] Output: Urine 100 400 Other: Voiding Method Urinal Urinal Urinal # Voids 1 # Bowel Movements 1 - Exam HEENT: Head is atraumatic, normocephalic. Pupils are equal, round. Sclerae ani cteric. Conjunctivae are clear. Mucous membranes of the mouth are moist. Neck is supple. There is no elevated jugular venous pressure. No carotid bruit is heard. CHEST EXAMINATION: Lungs reveal diminished air entry bilaterally with faint bibasilar crackles. No wheezes or rhonchi. Respirations even and nonlabored. HEART EXAMINATION: Heart irregular rate and rhythm, positive S1 and S2. No S3. No S4. Systolic murmur. ABDOMEN: Soft, nontender. Bowel sounds are heard. No organomegaly noted. EXTREMITIES: 2+ peripheral pulses with evidence of mild peripheral edema and no calf tenderness noted. NEUROLOGIC EXAMINATION: Patient is awake, alert and oriented x1. - Labs CBC & Chem 7: 05/18/22 07:03 05/18/22 07:03 Labs: Abnormal Lab Results - Last 24 Hours (Table) 05/16/22 05/17/22 05/18/22 Range/Units 14:09 06:56 07:03 WBC (3.8-10.6) k/uL RBC (4.30-5.90) m/uL Hgb (13.0-17.5) gm/dL Hct (39.0-53.0) % MCV (80.0-100.0) fL MCH (25.0-35.0) pg RDW (11.5-15.5) % Neutrophils # (Manual) (1.3-7.7) k/uL Lymphocytes # (Manual) (1.0-4.8) k/uL Nucleated RBCs (0-0) /100 WBC Macrocytosis Retic Count (0.5-2.0) % BUN 22 H (9-20) mg/dL Calcium 8.3 L (8.4-10.2) mg/dL TSH 17.500 H (0.350-5.500) uIU/mL Free (T4) Reflex I 0.770 L (0.800-1.800) ng/dL Crossmatch See Detail 05/18/22 05/18/22 Range/Units 07:03 07:03 WBC 1.4 L* (3.8-10.6) k/uL RBC 2.38 L (4.30-5.90) m/uL Hgb 8.4 L (13.0-17.5) gm/dL Hct 25.5 L (39.0-53.0) % MCV 107.2 H (80.0-100.0) fL MCH 35.3 H (25.0-35.0) pg RDW 22.4 H (11.5-15.5) % Neutrophils # (Manual) 0.40 L* (1.3-7.7) k/uL Lymphocytes # (Manual) 0.80 L (1.0-4.8) k/uL Nucleated RBCs 3 H (0-0) /100 WBC Macrocytosis Marked A Retic Count 2.6 H (0.5-2.0) % BUN (9-20) mg/dL Calcium (8.4-10.2) mg/dL TSH (0.350-5.500) uIU/mL Free (T4) Reflex I (0.800-1.800) ng/dL Crossmatch Assessment and Plan Assessment: #1 acute likely on chronic congestive heart failure, LV systolic function unknown at this time #2 anemia and leukopenia could represent malignancy #3 elevated troponins likely secondary to underlying anemia and heart failure however acute coronary event cannot be definitively ruled out the patient is not a candidate for aggressive cardiac workup at this time. #4 atrial fibrillation, likely chronic persistent, not currently anticoagulated likely secondary to anemia #5 rheumatic heart disease according to family #6 dementia, advanced Plan: From cardiology's perspective we'll obtain a 2-D echo with Doppler study to assess cardiac structure and function. Troponin elevation could be likely related to underlying anemia. At this time will hold off on anticoagulation. Continue to diurese the patient. Work on obtaining records from [facility] and [facility]. Await further workup in regards to the anemia. We will continue to follow the patient provide further recommendations accordingly. COST ESTIMATOR note has been reviewed, I agree with a documented findings and plan of care. Patient was seen and examined.
[2022-05-18 14:54] LABS: Free Kappa Lt Chain Qnt, Serum 6.34 mg/dL (0.33-1.94); Free Lambda Lt Chain Qnt, Seru 6.05 mg/dL (0.57-2.63)
--- NOTE | 2022-05-18 17:20 | CA ---
Transthoracic Echo Report Name: Vu Butterfield Age: 81 Gender: M : 1940 Exam Date: 05/18/2022 09:32 Exam Location: [facility] Ht (in): 69 Wt (lb): 93 Ordering Physician: Sri Pyle Attending/Referring Phys: [id number], Edenilson Manager Surgical Juliet Keith RDCS Procedure CPT: Indications: elevated troponin Cardiac Hx: Technical Quality: Contrast 1: Total Dose (mL): Contrast 2: Total Dose (mL): MEASUREMENTS (Male / Female) Normal Values 2D ECHO LV Diastolic Diameter PLAX 4.5 cm 4.2 - 5.9 / 3.9 - 5.3 cm LV Systolic Diameter PLAX 4.2 cm IVS Diastolic Thickness 1.2 cm 0.6 - 1.0 / 0.6 - 0.9 cm LVPW Diastolic Thickness 1.9 cm 0.6 - 1.0 / 0.6 - 0.9 cm LV Relative Wall Thickness 0.7 RV Internal Dim ED PLAX 3.5 cm LA Systolic Diameter LX 5.1 cm 3.0 - 4.0 / 2.7 - 3.8 cm LA Volume 113.2 cm??? 18 - 58 / 22 - 52 cm??? M-MODE Aortic Root Diameter MM 2.7 cm LA Systolic Diameter MM 4.6 cm LA Ao Ratio MM 1.7 MV E Point Septal Separation 0.7 cm AV Cusp Separation MM 1.1 cm DOPPLER AV Peak Velocity 188.5 cm/s AV Peak Gradient 14.2 mmHg TR Peak Velocity 319.4 cm/s TR Peak Gradient 40.8 mmHg Right Ventricular Systolic Press 43.8 mmHg FINDINGS Left Ventricle Mildly increased septal wall thickness. Left ventricular ejection fraction is estimated at 55%. Right Ventricle Normal right ventricular size and function.pulmonary hypertension. pulmonary hypertension. Right Atrium Normal right atrial size. Left Atrium Moderately increased left atrial diameter. Severely increased left atrial volume. Mildly increased left atrial area. Mitral Valve Structurally normal mitral valve. Moderate mitral regurgitation. Aortic Valve Trileaflet aortic valve. Tricuspid Valve Structurally normal tricuspid valve. Moderate tricuspid regurgitation. Pulmonic Valve Structurally normal pulmonic valve. Pericardium Small pericardial effusion. Aorta Normal size aortic root and proximal ascending aorta. CONCLUSIONS Normal LV systolic function Moderate mitral regurgitation Mild to moderate pulmonary hypertension Previewed by: Dr. Mark Luevano MD (Electronically Signed) Final Date: 18 May 2022 17:20
--- NOTE | 2022-05-19 01:25 | DS ---
DISCHARGE SUMMARY FINAL DIAGNOSES: 1. Acute gastrointestinal bleed for possible EGD, stable. 2. Leukopenia. 3. Troponin 0.152. 4. History of atrial fibrillation. 5. Coronary artery disease. 6. Hypertension. 7. Multiple medical issues. DISCHARGE DISPOSITION: The patient will be discharged in stable condition with guarded prognosis after clearance of multiple consults. HISTORY OF PRESENT ILLNESS: This is an 81-year-old gentleman admitted with GI bleed. Gastroenterology recommended outpatient followup. Hemoglobin improved to 8.4. Hematology/Oncology also seen the patient. White count 1.4. PHYSICAL EXAMINATION: VITAL SIGNS: Stable. CARDIOVASCULAR: S1, S2. ABDOMEN: Soft. DISCHARGE MEDICATIONS: The patient will be discharged to continue the home medications and hold Lovenox and reduce the dose of metoprolol to 25 mg b.i.d. Follow up with Dr. Luevano for endoscopies and Cardiology also. Once again, the patient is being discharged in stable condition. Guarded prognosis. Overall, this elderly individual is stable despite multiple complex medical issues as mentioned earlier. Conservative line of management is being recommended at this time. MMODL / IJN: [id number] /
--- NOTE | 2022-05-21 06:03 | CDI ---
Documentation Clarification Form Date: 05/21/2022 05:44:00 AM From: Madelin Miranda Admit Date: 05/16/2022 03:56:00 PM Patient Name: Vu Butterfield Visit Number: [id number] Discharge Date: 05/18/2022 03:41:00 PM ATTENTION: The Clinical Documentation Specialists (CDI) and [facility] Coding Staff appreciate your assistance in clarifying documentation. Please respond to the clarification below the line at the bottom and electronically sign. The CDI & [facility] Coding staff will review the response and follow-up if needed. Please note: Queries are made part of the Legal Health Record. If you have any questions, please contact the author of this message via ITS. Dr. Citlali Tejeda Patient has a documented BMI of 13.8 documented in Dietary consult. Additional clarification is requested if there is a diagnosis that is linked to this low BMI. History/Risk Factors: GI bleed, anemia, NSTEMI, persistent atrial fib Clinical Indicators: Patients weight is 42.5K Patients height is 5'9" Calculated BMI is 13.8 Treatments: Encusre TID Nutritional Education healthful diet at home with supplements Dietary Consult underweight Calorie Count Needs [id number] Please clarify, is there is an additional diagnosis that is clinically appropriate for this patient? [ ] Cachexia [x ] Underweight [ ] Malnutrition, (further specify severity and type) mild, moderate, severe [ ] Other, please specify [ ] Unable to determine MTDD
[2022-05-21 08:43] LABS: Protein, Total 5.9 g/dL (6.2-8.2)
[2022-05-24 08:08] LABS: Albumin 3.43 g/dL (3.80-4.90); Gamma Globulin 0.76 g/dL (0.70-1.50)
== END 2022-05-18 15:41 | disposition home or self-care (01) | DRG 377 ==
LOC: EC 11:16 → 3SCARD 15:56
PROVIDERS: ADMIT Hospitalist; ATTEND Hospitalist
PROC: 30233N1 Transfusion of Nonautologous Red Blood Cells into Peripheral Vein, Percutaneous Approach (ICD-10-PCS; principal; 2022-05-17)
DX: K92.2 Gastrointestinal hemorrhage, unspecified (principal); I21.4 Non-ST elevation (NSTEMI) myocardial infarction; I48.19 Other persistent atrial fibrillation; Z68.1 Body mass index [BMI] 19.9 or less, adult; I50.9 Heart failure, unspecified; R63.6 Underweight; I49.3 Ventricular premature depolarization; Z79.01 Long term (current) use of anticoagulants; I11.0 Hypertensive heart disease with heart failure; I09.9 Rheumatic heart disease, unspecified; D53.9 Nutritional anemia, unspecified; D72.819 Decreased white blood cell count, unspecified; F03.C0 Unspecified dementia, severe, without behavioral disturbance, psychotic disturbance, mood disturbance, and anxiety; I25.10 Atherosclerotic heart disease of native coronary artery without angina pectoris; Z79.899 Other long term (current) drug therapy; Z71.3 Dietary counseling and surveillance; Z87.01 Personal history of pneumonia (recurrent)
CPT/HCPCS: 36415; 71046; 80048; 80053; 82525; 82607; 82728; 82746; 83540; 83550; 83735; 83880; 83883; 84165; 84439; 84443; 84484; 85025; 85045; 85610; 85730; 86038; 86334; 86431; 86850; 86900; 86901; 86920; 93005; 93306; 96360; 99285

== ENCOUNTER 2022-05-20 05:17 | Inpatient (IN) | payer MEDICARE, OTHER ==
[2022-05-20] MEDS ORDERED: MORPHINE SULFATE 4 MG/ML SYRINGE IV PRN (05:27)
[2022-05-20] MEDS ORDERED: NALOXONE 0.4 MG/ML 1 ML VIAL IV PRN (05:27)
[2022-05-20] MEDS ORDERED: ONDANSETRON 4 MG/2 ML VIAL IVP PRN (05:27)
[2022-05-20] MEDS ORDERED: HEPARIN SODIUM 1,000 UN/ML (10ML VL) IV PRN (05:27)
--- NOTE | 2022-05-20 05:29 | ED ---
Recheck HPI - General Stated Complaint: AFib Time Seen by Provider: 05/20/22 05:26 - Related Data Home Medications Medication Instructions Recorded Confirmed Simvastatin [Zocor] 20 mg PO HS 05/20/22 05/20/22 Previous Rx's Medication Instructions Recorded Cyanocobalamin (Vitamin B-12) 1,000 mcg PO DAILY 30 Days #30 tab 05/18/22 [Vitamin B-12] Ipratropium-Albuterol Nebulize 3 ml INHALATION RT-Q12H PRN 30 05/18/22 [Duoneb 0.5 mg-3 mg/3 ml Soln] Days #60 each Levothyroxine Sodium [Euthyrox] 50 mcg PO DAILY #30 tablet 05/18/22 Metoprolol Tartrate [Lopressor] 25 mg PO BID 30 Days #60 tab 05/18/22 risperiDONE [RisperDAL] 0.25 mg PO BID #6 tab 05/18/22 Atorvastatin [Lipitor] 20 mg PO HS #0 05/24/22 Furosemide [Lasix] 40 mg PO 0900,1600 #60 tablet 05/24/22 Pantoprazole [Protonix] 40 mg PO DIRECTED 30 Days #45 05/24/22 tab Allergies Allergy/AdvReac Type Severity Reaction Status Date / Time No Known Allergies Allergy Verified 05/20/22 13:27 Review of Systems ROS Statement: Those systems with pertinent positive or pertinent negative responses have been documented in the HPI. ROS Other: All systems not noted in ROS Statement are negative. Past Medical History Past Medical History: Coronary Artery Disease (CAD), Chest Pain / Angina, Hypertension Additional Past Medical History / Comment(s): Mitral valve, Anemia History of Any Multi-Drug Resistant Organisms: None Reported Past Surgical History: Hernia Repair Additional Past Surgical History / Comment(s): Renal Biopsy Past Psychological History: No Psychological Hx Reported Smoking Status: Never smoker Past Alcohol Use History: None Reported Past Drug Use History: None Reported - Past Family History Son(s) Family Medical History: Diabetes Mellitus Course Vital Signs 05/20/22 05/20/22 05/20/22 05:27 06:00 07:00 Temperature 98 F Pulse Rate 106 H 105 H 101 H Respiratory 16 16 16 Rate Blood Pressure 93/49 104/50 123/66 O2 Sat by Pulse 92 L 92 L 94 L Oximetry 05/20/22 05/20/22 05/20/22 08:00 09:00 10:00 Temperature Pulse Rate 91 99 103 H Respiratory 18 17 16 Rate Blood Pressure 107/59 99/49 106/83 O2 Sat by Pulse 98 96 Oximetry 05/20/22 05/20/22 11:30 12:54 Temperature 97.5 F L Pulse Rate 95 110 H Respiratory 16 16 Rate Blood Pressure 127/48 130/62 O2 Sat by Pulse 97 98 Oximetry - Reevaluation(s) Reevaluation #1: 05/20/22 medical record is reviewed Patient symptoms are improved here in the ER Patient informed of results and questions answered Medical Decision Making - Lab Data Result diagrams: 05/24/22 05:53 05/24/22 05:53 - EKG Data -: EKG Interpreted by Me (EKG is A. fib 96 QRS 119 QTC 390) Disposition Clinical Impression: Non-STEMI (non-ST elevated myocardial infarction), Chest pain Disposition: ADMITTED IP TO THIS HOSP Condition: Stable Is patient prescribed a controlled substance at d/c from ED?: No Time of Disposition: 05:30
[2022-05-20] MEDS ORDERED: HEPARIN SOD,PORK IN 0.45% NACL 25,000 UNIT in 0.45% NACL 1 250ML.BAG IV SCH (05:30)
[2022-05-20] MEDS ORDERED: DILTIAZEM 125 MG in SODIUM CHLORIDE 0.9% 100 ML IV SCH (05:45)
[2022-05-20] MEDS: SODIUM CHLORIDE 0.9% 1,000 ML IV SCH (06:09)
[2022-05-20] MEDS ORDERED: PANTOPRAZOLE 40 MG/10 ML VIAL IV SCH (09:00)
--- NOTE | 2022-05-20 10:42 | P.CRDCN ---
History of Present Illness Consult date: 05/20/22 History of present illness: History of Present Illness: The patient is an 81-year-old male with known history of atrial fibrillation, history of dementia, recently discharged from the hospital and apparently was taken from the longterm to [facility] because of the fact that he urinated on himself, I am not able to obtain any history. At [facility] he was noted to be in atrial fibrillation and had troponin elevation, of note that he had troponin elevation during his last visit and he has anemia. Patient has been anticoagulated in the past but his anticoagulation was stopped because of his anemia. He has a history of leukopenia. He underwent workup at [facility] recently but the results are not available. His echocardiogram obtained during last admission showed an ejection fraction 55% with moderate mitral and tricuspid regurgitation. His troponin at [facility] where 0.27 and 0.29, his NT proBNP was elevated. I am not able to obtain any history from the patient, he is not sure why he is here. He is on IV Cardizem, and in atrial fibrillation. Medications: Lipitor 20 mg daily, metoprolol 25 mg twice a day, Lasix 20 mg twice a day Review of system: Could not be obtained Physical Examination: 81-year-old male, alert, confused, no apparent distress,Blood pressure 106/80, Heart rate 90 Head: Normocephalic. Eyes: Sclerae nonicteric. Neck: Good carotid upstroke, no bruit, no jugular venous distention. Lungs: Clear to auscultation. Heart: Irregular rate and rhythm, S1-S2, no S3, no rub. Holosystolic murmur. Abdomen: Soft nontender, positive bowel sounds no organomegaly. Extremities: +1 edema, intact distal pulses. Labs: Troponin 0.105 was 0.142 during last admission, hemoglobin 8.7 EKG: Atrial fibrillation with nonspecific ST-T wave changes Impression: 1. Atrial fibrillation, persistent, not anticoagulated because of increasing GI bleeding 2. Mild troponin elevation, no clear evidence of acute coronary syndrome, decreasing 3. Anemia with recent GI bleeding 4. Advanced dementia Plan: 1. Stop IV heparin 2. Stop IV Cardizem 3. Resume metoprolol 4. IV Lasix for 24 hours 5. Conservative treatment 6. Depending on his progress further recommendations will be made, thank you for this consult we will follow with you. Past Medical History Past Medical History: Coronary Artery Disease (CAD), Chest Pain / Angina, Hypertension Additional Past Medical History / Comment(s): Mitral valve, Anemia History of Any Multi-Drug Resistant Organisms: None Reported Past Surgical History: Hernia Repair Additional Past Surgical History / Comment(s): Renal Biopsy Past Psychological History: No Psychological Hx Reported Smoking Status: Never smoker Past Alcohol Use History: None Reported Past Drug Use History: None Reported - Past Family History Son(s) Family Medical History: Diabetes Mellitus Medications and Allergies Home Medications Medication Instructions Recorded Confirmed Type Atorvastatin [Lipitor] 20 mg PO HS 30 Days #30 tab 05/18/22 Rx Cyanocobalamin (Vitamin B-12) 1,000 mcg PO DAILY 30 Days #30 tab 05/18/22 Rx [Vitamin B-12] Furosemide [Lasix] 20 mg PO BID 30 Days #60 tab 05/18/22 Rx Ipratropium-Albuterol Nebulize 3 ml INHALATION RT-Q12H PRN 30 05/18/22 Rx [Duoneb 0.5 mg-3 mg/3 ml Soln] Days #60 each Levothyroxine Sodium [Euthyrox] 50 mcg PO DAILY #30 tablet 05/18/22 Rx Metoprolol Tartrate [Lopressor] 25 mg PO BID 30 Days #60 tab 05/18/22 Rx risperiDONE [RisperDAL] 0.25 mg PO BID #6 tab 05/18/22 Rx Allergies Allergy/AdvReac Type Severity Reaction Status Date / Time No Known Allergies Allergy Verified 05/16/22 16:12 Physical Exam Vitals: Vital Signs Temp Pulse Resp BP Pulse Ox 05/20/22 10:00 103 H 16 106/83 05/20/22 09:00 99 17 99/49 96 05/20/22 08:00 91 18 107/59 98 05/20/22 07:00 101 H 16 123/66 94 L 05/20/22 06:00 105 H 16 104/50 92 L 05/20/22 05:27 98 F 106 H 16 93/49 92 L Intake and Output 05/19/22 05/20/22 05/20/22 22:59 06:59 14:59 Other: Weight 71 kg Results Cardiac Enzymes 05/20/22 Range/Units 06:23 Troponin I 0.105 H* (0.000-0.034) ng/mL Current Medications Generic Name Dose Route Start Last Admin Trade Name Freq PRN Reason Stop Dose Admin Heparin Sodium (Porcine) 0 unit 05/20/22 05:27 Heparin Sodium 1,000 Un/Ml (10ml Vl) IV PER PROTOCOL PRN Low PTT Protocol Heparin Sodium/Sodium Chloride 250 mls @ 8.52 mls/hr 05/20/22 05:30 05/20/22 06:00 25,000 unit/ Sodium Chloride IV 12 units/kg/hr .Q24H HANK 8.52 mls/hr Administration Protocol 12 UNITS/KG/HR Sodium Chloride 1,000 mls @ 20 mls/hr 05/20/22 05:30 05/20/22 06:09 Saline 0.9% IV 20 mls/hr .Q24H HANK Administration Diltiazem HCl 125 mg/ Sodium 125 mls @ 5 mls/hr 05/20/22 05:45 05/20/22 06:09 Chloride IV 5 mg/hr .Q24H HANK 5 mls/hr Administration 5 MG/HR Morphine Sulfate 4 mg 05/20/22 05:27 Morphine Sulfate 4 Mg/Ml Syringe IV Q4HR PRN Severe Pain (Scale 7 to 10) Naloxone HCl 0.2 mg 05/20/22 05:27 Naloxone 0.4 Mg/Ml 1 Ml Vial IV Q2M PRN Opioid Reversal Ondansetron HCl 4 mg 05/20/22 05:27 Ondansetron 4 Mg/2 Ml Vial IVP Q8HR PRN Nausea And Vomiting Pantoprazole Sodium 40 mg 05/20/22 09:00 05/20/22 08:17 Pantoprazole 40 Mg/10 Ml Vial IV 40 mg DAILY HANK Administration Intake and Output 05/19/22 05/20/22 05/20/22 22:59 06:59 14:59 Other: Weight 71 kg
[2022-05-20] MEDS: FUROSEMIDE 10 MG/ML 4 ML VIAL IV SCH ×2 (10:51→20:57)
--- NOTE | 2022-05-20 14:25 | P.HPIM ---
History of Present Illness Patient is 81-year-old male with history of dementia which is very much advanced came from alf because of altered mental status at her [place] patient was found to have atrial fibrillation and troponin elevation because of which patient was transferred to [facility]. Patient had a normal ejection fraction the past also found to have elevated proBNP patient cannot provide any history to me patient is presently on IV Cardizem and is in atrial fibrillation. Patient heart rate is well controlled patient had a GI bleed in the past on anti-correlation because of which patient is not anticoagulated as an outpatient. REVIEW OF SYSTEMS: Unable to obtain due to his clinical condition PHYSICAL EXAMINATION: GENERAL: The patient is alert and oriented x1, not in any acute distress. Well developed, well nourished. HEENT: Pupils are round and equally reacting to light. EOMI. No scleral icterus. No conjunctival pallor. Normocephalic, atraumatic. No pharyngeal erythema. No thyromegaly. CARDIOVASCULAR: S1 and S2 present. No murmurs, rubs, or gallops. PULMONARY: Chest is clear to auscultation, no wheezing or crackles. ABDOMEN: Soft, nontender, nondistended, normoactive bowel sounds. No palpable organomegaly. MUSCULOSKELETAL: No joint swelling or deformity. EXTREMITIES: No cyanosis, clubbing, or pedal edema. NEUROLOGICAL: Gross neurological examination did not reveal any focal deficits. Generalized weakness SKIN: No rashes. Assessment and plan -Atrial fibrillation patient rate is well controlled patient is presently not on anticoagulation patient has chronic persistent A. fib -Advanced dementia alf resident -Mild troponin elevation secondary to possible atrial fibrillation cardiology evaluated the patient -The start failure chronic diastolic dysfunction with mild acute exacerbation patient is on IV Lasix which will be continued for next 24 hours DVT prophylaxis: Past Medical History Past Medical History: Coronary Artery Disease (CAD), Chest Pain / Angina, Hypertension Additional Past Medical History / Comment(s): Mitral valve, Anemia History of Any Multi-Drug Resistant Organisms: None Reported Past Surgical History: Hernia Repair Additional Past Surgical History / Comment(s): Renal Biopsy Past Psychological History: No Psychological Hx Reported Smoking Status: Never smoker Past Alcohol Use History: None Reported Past Drug Use History: None Reported - Past Family History Son(s) Family Medical History: Diabetes Mellitus Medications and Allergies Home Medications Medication Instructions Recorded Confirmed Type Cyanocobalamin (Vitamin B-12) 1,000 mcg PO DAILY 30 Days #30 tab 05/18/22 05/20/22 Rx [Vitamin B-12] Furosemide [Lasix] 20 mg PO BID 30 Days #60 tab 05/18/22 05/20/22 Rx Ipratropium-Albuterol Nebulize 3 ml INHALATION RT-Q12H PRN 30 05/18/22 05/20/22 Rx [Duoneb 0.5 mg-3 mg/3 ml Soln] Days #60 each Levothyroxine Sodium [Euthyrox] 50 mcg PO DAILY #30 tablet 05/18/22 05/20/22 Rx Metoprolol Tartrate [Lopressor] 25 mg PO BID 30 Days #60 tab 05/18/22 05/20/22 Rx risperiDONE [RisperDAL] 0.25 mg PO BID #6 tab 05/18/22 05/20/22 Rx Atorvastatin [Lipitor] 20 mg PO DIRECTED 05/20/22 05/20/22 History Simvastatin [Zocor] 20 mg PO HS 05/20/22 05/20/22 History Allergies Allergy/AdvReac Type Severity Reaction Status Date / Time No Known Allergies Allergy Verified 05/20/22 13:27 Physical Exam Vitals: Vital Signs Temp Pulse Pulse Resp BP BP Pulse Ox 05/20/22 14:11 97.8 F 103 H 18 124/67 97 05/20/22 13:07 98.2 F 98 18 131/49 96 05/20/22 12:54 97.5 F L 110 H 16 130/62 98 05/20/22 11:30 95 16 127/48 97 05/20/22 10:00 103 H 16 106/83 05/20/22 09:00 99 17 99/49 96 05/20/22 08:00 91 18 107/59 98 05/20/22 07:00 101 H 16 123/66 94 L 05/20/22 06:00 105 H 16 104/50 92 L 05/20/22 05:27 98 F 106 H 16 93/49 92 L Intake and Output 05/19/22 05/20/22 05/20/22 22:59 06:59 14:59 Other: Weight 71 kg Results Labs: Abnormal Lab Results - Last 24 Hours (Table) 05/20/22 05/20/22 05/20/22 Range/Units 06:23 11:30 12:00 APTT 33.5 H (22.0-30.0) sec Troponin I 0.105 H* 0.104 H* (0.000-0.034) ng/mL
[2022-05-20] MEDS: METOPROLOL TARTRATE 25 MG TAB PO SCH ×2 (16:06→20:57)
[2022-05-20] MEDS: QUEtiapine 25 MG TAB PO PRN (20:57)
[2022-05-21] MEDS: SODIUM CHLORIDE 0.9% 1,000 ML IV SCH (05:43)
[2022-05-21] MEDS ORDERED: PANTOPRAZOLE 40 MG TABLET PO SCH (07:30)
[2022-05-21] MEDS: FUROSEMIDE 10 MG/ML 4 ML VIAL IV SCH ×2 (08:56→20:55)
[2022-05-21] MEDS: METOPROLOL TARTRATE 25 MG TAB PO SCH ×3 (08:56→20:56)
[2022-05-21 09:23] LABS: African American GFR (CKD) 65.8 (60.0-200.0); Albumin 3.4 g/dL (3.8-4.9); Albumin/Globulin Ratio 1.7 (1.60-3.17); Anion Gap 9.4 mmol/L (10.00-18.00); BUN/Creat Ratio 26.58 Ratio (12.00-20.00); Blood Urea Nitrogen 31.9 mg/dL (9.0-27.0); Calcium 8.7 mg/dL (8.7-10.3); Carbon Dioxide 27.6 mmol/L (20.0-27.5); Magnesium 1.9 mg/dL (1.5-2.4); Non-African American GFR(CKD) 56.8 (60.0-200.0); Phosphorus 4.2 mg/dL (2.4-5.1); Total Bilirubin 0.8 mg/dL (0.30-1.20); Total Protein 5.4 g/dL (6.2-8.2)
[2022-05-21 09:40] LABS: HCT 21.4 % (39.6-50.0); HGB 6.8 g/dL (13.0-17.0); MCH 34.3 pg (27.0-32.0); MCHC 31.8 g/dL (32.0-37.0); MCV 108.1 fL (80.0-97.0); Mean Platelet Volume 11.9 fL (9.5-12.2); NRBC Per 100 WBC 1.8 /100 WBCS (0.0-0.0); Platelet Count 164 X 10*3/uL (140-440); RBC 1.98 X 10*6/uL (4.40-5.60); RDW 22.2 % (11.5-14.5); WBC 1.68 X 10*3/uL (4.50-10.00)
[2022-05-21 09:41] LABS: Basophils # (A) 0.01 X 10*3/uL (0.00-0.10); Basophils % (A) 0.6 %; Eosinophils # (A) 0.01 X 10*3/uL (0.04-0.35); Eosinophils % (A) 0.6 %; Immature Grans, Automated 2.4 %; Lymphocytes # (A) 0.66 X 10*3/uL (0.90-5.00); Lymphocytes % (A) 39.3 %; Macrocytosis (M) 2+; Neutrophils # (A) 0.86 X 10*3/uL (1.80-7.70); Neutrophils % (A) 51.1 %; Rouleaux PRESENT
--- NOTE | 2022-05-21 13:50 | P.PN ---
Subjective Progress Note Date: 05/21/22 History of Present Illness: The patient is an 81-year-old male with known history of atrial fibrillation, history of dementia, recently discharged from the hospital and apparently was taken from the senior living to [facility] because of the fact that he urinated on himself, I am not able to obtain any history. At [facility] he was noted to be in atrial fibrillation and had troponin elevation, of note that he had troponin elevation during his last visit and he has anemia. Patient has been anticoagulated in the past but his anticoagulation was stopped because of his anemia. He has a history of leukopenia. He underwent workup at [facility] recently but the results are not available. His echocardiogram obtained during last admission showed an ejection fraction 55% with moderate mitral and tricuspid regurgitation. His troponin at [facility] where 0.27 and 0.29, his NT proBNP was elevated. I am not able to obtain any history from the patient, he is not sure why he is here. He is on IV Cardizem, and in atrial fibrillation. Medications: Lipitor 20 mg daily, metoprolol 25 mg twice a day, Lasix 20 mg twice a day Labs: Troponin 0.105 was 0.142 during last admission, hemoglobin 8.7 EKG: Atrial fibrillation with nonspecific ST-T wave changes 05/21 Patient denies having chest pain or shortness of breath. Patient monitors atrial fibrillation controlled rate. Blood pressure 136/54 and heart rate in the 70s. WBC 1.6, hemoglobin 6.8, platelet, 164. BUN 31 and creatinine 1.2. Physical Examination: 81-year-old male, alert, confused, no apparent distress,Blood pressure 106/80, Heart rate 90 Head: Normocephalic. Eyes: Sclerae nonicteric. Neck: Good carotid upstroke, no bruit, no jugular venous distention. Lungs: Clear to auscultation. Heart: Irregular rate and rhythm, S1-S2, no S3, no rub. Holosystolic murmur. Abdomen: Soft nontender, positive bowel sounds no organomegaly. Extremities: +1 edema, intact distal pulses. Impression: 1. Atrial fibrillation, persistent, not anticoagulated because of increasing GI bleeding 2. Mild troponin elevation, no clear evidence of acute coronary syndrome, decreasing 3. Anemia with recent GI bleeding 4. Advanced dementia Plan: Continue patient on Lopressor 25 mg 3 times daily Continue patient on IV Lasix 40 mg every 12 hours Monitor I&O, daily weights, electrolytes and renal function Depending on his progress further recommendations will be made, thank you for this consult we will follow with you. Nurse practitioner note has been reviewed, I agree with the documented findings and plan of care. Patient was seen and examined. Objective - Vital Signs Vital signs: Vital Signs Temp 97.5 F L 05/21/22 04:38 Pulse 67 05/21/22 04:38 Resp 16 05/21/22 04:38 BP 114/49 05/21/22 04:38 Pulse Ox 96 05/21/22 04:38 FiO2 Intake & Output 05/20/22 05/21/22 05/21/22 18:59 06:59 18:59 Intake Total 180 Output Total 700 6 200 Balance -700 -6 -20 Intake: Oral 180 Output: Urine 700 6 200 Other: Voiding Method Urinal Toilet Urinal # Voids 1 - Labs CBC & Chem 7: 05/21/22 05:50 05/21/22 05:50 Labs: Abnormal Lab Results - Last 24 Hours (Table) 05/20/22 05/20/22 Range/Units 11:30 12:00 APTT 33.5 H (22.0-30.0) sec Troponin I 0.104 H* (0.000-0.034) ng/mL
[2022-05-21] MEDS: PANTOPRAZOLE 40 MG/10 ML VIAL IVP SCH ×2 (16:33→21:24)
[2022-05-21] MEDS: QUEtiapine 25 MG TAB PO PRN (20:56)
--- NOTE | 2022-05-22 00:30 | P.PN ---
Subjective Progress Note Date: 05/21/22 Patient is 81-year-old male with history of dementia which is very much advanced came [facility] [place] [facility] because of altered mental status [place] patient was found to have atrial fibrillation and troponin elevation because of which patient was transferred to [facility]. Patient had a normal ejection fraction the past also found to have elevated proBNP patient cannot provide any history to me patient is presently on IV Cardizem and is in atrial fibrillation. Patient heart rate is well controlled patient had a GI bleed in the past on anti-correlation because of which patient is not anticoagulated as an outpatient. 05/21/2022 Patient is evaluated on medical floor today. No acute complaints, no evidence for black tarry or kayode red stools. Continue to monitor closely. He reports some mild abdominal tenderness, mostly epigastric with palpation. Possibly some gastritis. Patient was recently worked up for acute anemia and was evaluated by hematology. GI did not scope patient previous admission as his hemoglobin stabilized, tolerated diet and also had no evidence for GI bleeding while being monitored in hospital. He is status post 1 unit PRBC for hgb of 6.8 today. He continues to have abnormal hematology panel, his white count today 1.68, has evidence of nucleated RBC's. His previous hospital stay show high levels of free kappa and lambda light chains. Pending repeat labs tomorrow possibly consult hematology for further evaluation. He continues in atrial fibrillation, he was taken off his blood thinner previous admission secondary to possible GI bleed with low hemoglobin. He did receive IV heparin in the ER this hospital stay which could have exacerbated the low blood count. Review of Systems Constitutional: Denied any fatigue denied any fever. Cardio vascular: denied any chest pain, palpitations Gastrointestinal: denied any nausea, vomiting, diarrhea Pulmonary: Denied any shortness of breath cough Neurologic denied any new focal deficits All inpatient medications were reviewed and appropriate changes in these medications as dictated in the interval history and assessment and plan. PHYSICAL EXAMINATION: GENERAL: The patient is alert and oriented x1-2, not in any acute distress. Well developed, well nourished. HEENT: Pupils are round and equally reacting to light. EOMI. No scleral icterus. No conjunctival pallor. Normocephalic, atraumatic. No pharyngeal erythema. No thyromegaly. CARDIOVASCULAR: S1 and S2 present. No murmurs, rubs, or gallops. PULMONARY: Chest is clear to auscultation, no wheezing or crackles. ABDOMEN: Soft, mild epigastric tenderness, nondistended, normoactive bowel sounds. No palpable organomegaly. MUSCULOSKELETAL: No joint swelling or deformity. EXTREMITIES: No cyanosis, clubbing, or pedal edema. NEUROLOGICAL: Gross neurological examination did not reveal any focal deficits. Generalized weakness SKIN: No rashes. Assessment and plan Assessment -Anemia possiby acute GI bleed most likely upper although no evidence for melena or black stool, no emesis reported, patient was recently admitted for anemia and was found to have leukopenia, his blood thinner was stopped and he was conse rvatively managed at that time and was recommended for outpatient follow. Anemia possibly exacerbated by IV heparin this admission. -Leukopenia patient has undergone work up for this recently at [facility] and was also evaluated by hematology previous admission with bone marrow suppression from medications in the differential. Do not have reports to review from [facility]. -Atrial fibrillation patient rate is well controlled patient is presently not on anticoagulation patient has chronic persistent A. fib -Altered mental status possible from metabolic encephalopathy, with underlying advanced dementia. Patient had increased confusion it seems from the [place] [facility]. -Mild troponin elevation secondary to possible atrial fibrillation cardiology evaluated the patient no clear evidence for ACS -Congestive failure chronic diastolic dysfunction with mild acute exacerbation patient is on IV Lasix -Thin built male, BMI is within range at 24.5 although there appears to be a weight discrepancy. Was discharged with documented weight of 42.5 previous admission. Documented weight this admission 71 kg. Standing scale weight will be checked for accuracy. GI prophylaxis IV protonix DVT prophylaxis: Currently held Plan Follow up with family tomorrow regarding recent work up for leukopenia. Patient will be transfused 1 unit of packed red blood cells and will check CBC in the AM. Otherwise PT/OT evaluation and social work for discharge planning. Patient will most likely need subacute rehab on discharge. Continue current diet and monitor for GI bleeding. Check standing scale weight in AM for accuracy. The impression and plan of care has been dictated by Josselyn Miller, Nurse Practitioner as directed. Dr. Sahil MD I have performed a history and physical examination and medical decision making of this patient, discussed the same with the dictator, and agree with the dictators assessment and plan as written, documented as a scribe. Based on total visit time, I have performed more than 50% of this visit. Objective - Vital Signs Vital signs: Vital Signs Temp 97.6 F 05/21/22 15:12 Pulse 76 05/21/22 15:12 Resp 16 05/21/22 15:12 BP 151/81 05/21/22 15:12 Pulse Ox 99 05/21/22 15:12 FiO2 Intake & Output 05/20/22 05/21/22 05/21/22 18:59 06:59 18:59 Intake Total 490 Output Total 700 6 550 Balance -700 -6 -60 Intake: Oral 180 Blood Product 310 Rc Irr As1 Unit 310 [id number] Output: Urine 700 6 550 Other: Voiding Method Urinal Toilet Urinal # Voids 1 - Labs CBC & Chem 7: 05/21/22 05:50 05/21/22 05:50 Labs: Abnormal Lab Results - Last 24 Hours (Table) 05/21/22 05/21/22 05/21/22 Range/Units 05:50 05:50 09:58 WBC 1.68 L (4.50-10.00) X 10*3/uL RBC 1.98 L (4.40-5.60) X 10*6/uL Hgb 6.8 L* (13.0-17.0) g/dL Hct 21.4 L (39.6-50.0) % MCV 108.1 H (80.0-97.0) fL MCH 34.3 H (27.0-32.0) pg MCHC 31.8 L (32.0-37.0) g/dL RDW 22.2 H (11.5-14.5) % Absolute Nucleated RBC 0.03 H (0.00-0.00) X 10*3/uL Neutrophils # 0.86 L (1.80-7.70) X 10*3/uL Lymphocytes # 0.66 L (0.90-5.00) X 10*3/uL Monocytes # 0.10 L (0.20-1.00) X 10*3/uL Eosinophils # 0.01 L (0.04-0.35) X 10*3/uL NRBC/100 WBC Diff 1.8 H (0.0-0.0) /100 WBCS Carbon Dioxide 27.6 H (20.0-27.5) mmol/L Anion Gap 9.40 L (10.00-18.00) mmol/L BUN 31.9 H (9.0-27.0) mg/dL Est GFR (CKD-EPI)NonAf 56.8 L (60.0-200.0) BUN/Creatinine Ratio 26.58 H (12.00-20.00) Ratio Total Protein 5.4 L (6.2-8.2) g/dL Albumin 3.4 L (3.8-4.9) g/dL Crossmatch See Detail Assessment and Plan Time with Patient: Less than 30
[2022-05-22] MEDS: PANTOPRAZOLE 40 MG/10 ML VIAL IVP SCH ×2 (08:34→20:29)
[2022-05-22] MEDS: METOPROLOL TARTRATE 25 MG TAB PO SCH ×3 (08:34→20:29)
[2022-05-22] MEDS: FUROSEMIDE 40 MG TAB PO SCH ×2 (08:35→16:21)
[2022-05-22 08:58] LABS: HCT 25.4 % (39.6-50.0); HGB 8.2 g/dL (13.0-17.0); MCHC 32.3 g/dL (32.0-37.0); MCV 105.4 fL (80.0-97.0); Mean Platelet Volume 11.8 fL (9.5-12.2); NRBC Per 100 WBC 4.8 /100 WBCS (0.0-0.0); Platelet Count 183 X 10*3/uL (140-440); RBC 2.41 X 10*6/uL (4.40-5.60); RDW 23.7 % (11.5-14.5); WBC 1.68 X 10*3/uL (4.50-10.00)
[2022-05-22 09:08] LABS: African American GFR (CKD) 53.2 (60.0-200.0); Anion Gap 10.2 mmol/L (10.00-18.00); BUN/Creat Ratio 27.62 Ratio (12.00-20.00); Blood Urea Nitrogen 39.5 mg/dL (9.0-27.0); Calcium 8.7 mg/dL (8.7-10.3); Carbon Dioxide 28.8 mmol/L (20.0-27.5); Non-African American GFR(CKD) 45.9 (60.0-200.0); Potassium 4.4 mmol/L (3.5-5.5)
[2022-05-22] MEDS ORDERED: IPRATROPIUM-ALBUTEROL 3 ML NEB INHALATION PRN (10:04)
[2022-05-22 10:33] LABS: Basophils # (A) 0.01 X 10*3/uL (0.00-0.10); Basophils % (A) 0.6 %; Eosinophils # (A) 0.03 X 10*3/uL (0.04-0.35); Eosinophils % (A) 1.8 %; Immature Grans, Automated 1.8 %; Lymphocytes # (A) 0.94 X 10*3/uL (0.90-5.00); Monocytes # (A) 0.15 X 10*3/uL (0.20-1.00); Monocytes % (A) 8.9 %; Neutrophils # (A) 0.52 X 10*3/uL (1.80-7.70); Neutrophils % (A) 30.9 %
[2022-05-22 10:34] LABS: Anisocytosis (M) 2+; Microcytosis (M) 2+
--- NOTE | 2022-05-22 10:44 | XR ---
EXAMINATION TYPE: XR chest 2V DATE OF EXAM: 05/22/2022 10:39 AM COMPARISON: Chest radiographs from 05/16/2022 TECHNIQUE: XR chest 2V Frontal and lateral views of the chest. CLINICAL INDICATION:Male, 81 years old with history of wheezing; FINDINGS: Lungs/Pleura: There is no evidence of pleural effusion, focal consolidation, or pneumothorax. Simila r prominent perihilar interstitial lung markings. Heart/mediastinum: Cardiomediastinal silhouette is enlarged and stable. Atherosclerotic calcificatio ns are seen in the aorta. Musculoskeletal: Multiple level degenerative disc disease changes seen throughout the spine. Osseous structures are demineralized. IMPRESSION: Mildly prominent perihilar interstitial lung markings which can be seen with interstitial edema. Card iomegaly. Correlate for CHF exacerbation.
--- NOTE | 2022-05-22 12:28 | P.PN ---
Subjective Progress Note Date: 05/22/22 History of Present Illness: The patient is an 81-year-old male with known history of atrial fibrillation, history of dementia, recently discharged from the hospital and apparently was taken from the detention to [facility] because of the fact that he urinated on himself, I am not able to obtain any history. At [facility] he was noted to be in atrial fibrillation and had troponin elevation, of note that he had troponin elevation during his last visit and he has anemia. Patient has been anticoagulated in the past but his anticoagulation was stopped because of his anemia. He has a history of leukopenia. He underwent workup at [facility] recently but the results are not available. His echocardiogram obtained during last admission showed an ejection fraction 55% with moderate mitral and tricuspid regurgitation. His troponin at [facility] where 0.27 and 0.29, his NT proBNP was elevated. I am not able to obtain any history from the patient, he is not sure why he is here. He is on IV Cardizem, and in atrial fibrillation. Medications: Lipitor 20 mg daily, metoprolol 25 mg twice a day, Lasix 20 mg twice a day Labs: Troponin 0.105 was 0.142 during last admission, hemoglobin 8.7 EKG: Atrial fibrillation with nonspecific ST-T wave changes 05/21 Patient denies having chest pain or shortness of breath. Patient monitors atrial fibrillation controlled rate. Blood pressure 136/54 and heart rate in the 70s. WBC 1.6, hemoglobin 6.8, platelet, 164. BUN 31 and creatinine 1.2. 05/22 Patient has a food safety officer at the bedside due to his underlying dementia. Patient is status post transfusion of 1 unit of packed RBCswith a repeat hemoglobin of 8.2. Potassium is 4.4, BUN 39 creatinine 1.4.heart rate is and the 60s to 90s. Physical Examination: 81-year-old male, alert, confused, no apparent distress,Blood pressure 106/80, Heart rate 90 Head: Normocephalic. Eyes: Sclerae nonicteric. Neck: Good carotid upstroke, no bruit, no jugular venous distention. Lungs: Clear to auscultation. Heart: Irregular rate and rhythm, S1-S2, no S3, no rub. Holosystolic murmur. Abdomen: Soft nontender, positive bowel sounds no organomegaly. Extremities: speedometer mechanic remains in atrial fibrillation.trace edema, intact distal pulses. Impression: 1. Atrial fibrillation, persistent, not anticoagulated because of increasing GI bleeding 2. Mild troponin elevation, no clear evidence of acute coronary syndrome, decreasing 3. Anemia with recent GI bleeding 4. Advanced dementia Plan: Continue patient on Lopressor 25 mg 3 times daily wound change Lasix to oral 40 mg twice daily Monitor I&O, daily weights, electrolytes and renal function cardiology we'll sign off and follow on an as-needed basis. Please reconsult if any new concerns. Nurse practitioner note has been reviewed, I agree with the documented findings and plan of care. Patient was seen and examined. Objective - Vital Signs Vital signs: Vital Signs Temp 97.6 F 05/22/22 05:00 Pulse 68 05/22/22 05:00 Resp 16 05/22/22 05:00 BP 112/47 05/22/22 05:00 Pulse Ox 94 L 05/22/22 05:00 FiO2 Intake & Output 05/21/22 05/22/22 05/22/22 18:59 06:59 18:59 Intake Total 490 Output Total 550 Balance -60 Weight 65.5 kg Intake: Oral 180 Blood Product 310 Rc Irr As1 Unit 310 [id number] Output: Urine 550 Other: Voiding Method Toilet Urinal # Voids 5 3 - Labs CBC & Chem 7: 05/22/22 06:21 05/22/22 06:21 Labs: Abnormal Lab Results - Last 24 Hours (Table) 05/21/22 05/21/22 05/21/22 Range/Units 05:50 05:50 09:58 WBC 1.68 L (4.50-10.00) X 10*3/uL RBC 1.98 L (4.40-5.60) X 10*6/uL Hgb 6.8 L* (13.0-17.0) g/dL Hct 21.4 L (39.6-50.0) % MCV 108.1 H (80.0-97.0) fL MCH 34.3 H (27.0-32.0) pg MCHC 31.8 L (32.0-37.0) g/dL RDW 22.2 H (11.5-14.5) % Absolute Nucleated RBC 0.03 H (0.00-0.00) X 10*3/uL Neutrophils # 0.86 L (1.80-7.70) X 10*3/uL Lymphocytes # 0.66 L (0.90-5.00) X 10*3/uL Monocytes # 0.10 L (0.20-1.00) X 10*3/uL Eosinophils # 0.01 L (0.04-0.35) X 10*3/uL NRBC/100 WBC Diff 1.8 H (0.0-0.0) /100 WBCS Carbon Dioxide 27.6 H (20.0-27.5) mmol/L Anion Gap 9.40 L (10.00-18.00) mmol/L BUN 31.9 H (9.0-27.0) mg/dL Est GFR (CKD-EPI)NonAf 56.8 L (60.0-200.0) BUN/Creatinine Ratio 26.58 H (12.00-20.00) Ratio Total Protein 5.4 L (6.2-8.2) g/dL Albumin 3.4 L (3.8-4.9) g/dL Crossmatch See Detail
[2022-05-22 12:58] LABS: Appearance,Urine Clear (Clear); Bilirubin,Urine Negative (Negative); Blood,Urine Negative (Negative); Color,Urine Light Yellow; Glucose,Urine (UA) Negative (Negative); Ketones,Urine Negative (Negative); Leukocyte Esterase,Urine Negative (Negative); Nitrite,Urine Negative (Negative); PH, Urine 5.5 (5.0-8.0); Protein,Urine Negative (Negative); Specific Gravity,Urine 1.008 (1.001-1.035); Urobilinogen,Urine <2.0 mg/dL (<2.0)
--- NOTE | 2022-05-22 13:20 | P.GSCN ---
History of Present Illness Consult date: 05/22/22 History of present illness: CHIEF COMPLAINT: Atrial fibrillation and elevated troponin Reason for consult anemia HISTORY OF PRESENT ILLNESS: This is a 81-year-old male with a known history of dementia. Apparently he was a transfer from [facility] due to a trial fibrillation and elevated troponin. Patient had been on anticoagulation in the past but was stopped due to his anemia. Patient seen by cardiology during this admission and he was continued on his beta nohemi there is no evidence of acute coronary syndrome per cardiology. Surgical service is consulted in regards to patient's anemia. He had a hemoglobin of 6.8 on admission. He did receive a unit of blood and hemoglobin is up to 8.2. Patient has history of anemia. Patient's stools have been brown. He is complaining of epigastric pain. Denies any nausea or vomiting. He is tolerating a diet. Patient is a poor historian. No history of EGD or colonoscopy. Patient does have a bedside sitter due to his confusion. PAST MEDICAL HISTORY: See below PAST SURGICAL HISTORY: See below MEDICATIONS: See below ALLERGIES: See below SOCIAL HISTORY: No illicit drug use. REVIEW OF SYSTEMS: CONSTITUTIONAL: Denies fever or chills. HEENT: Denies blurred vision, vision changes, or eye pain. Denies hemoptysis CARDIOVASCULAR: Denies chest pain or pressure. RESPIRATORY: No shortness of breath. GASTROINTESTINAL: See HPI for pertinent findings HEMATOLOGIC: Denies bleeding disorders. GENITOURINARY: Denies any blood in urine or increased urinary frequency. SKIN: Denies pruitis. Denies rash. PHYSICAL EXAM: VITAL SIGNS: Reviewed GENERAL: Well-developed in no acute distress. HEENT: No sclera icterus. Extraocular movements grossly intact. Moist buccal mucosa. Head is atraumatic, normocephalic. No nasal drainage. ABDOMEN: Soft. Epigastric tenderness NEUROLOGIC: Confused but awake and alert sitting in bedside chair. LABORATORY DATA: WBC 1.68 Hgb 6.8-8.2 platelets 183 Sodium 140 potassium 4.4 creatinine 1.4 Urinalysis negative IMAGING: ASSESSMENT: 1. Macrocytic anemia 2. Epigastric abdominal pain 3. Leukopenia PLAN: -Patient scheduled for EGD on , 05/24/[address] montelongo -Continue PPI -Continue clear liquid diet -Check stool for occult blood -Continue monitor hemoglobin -Continue monitor for any signs or symptoms of bleeding Thank you for this consultation Physician Search Engine Optimizer note has been reviewed by physician. Signing provider agrees with the documented findings, assessment, and plan of care. Past Medical History Past Medical History: Coronary Artery Disease (CAD), Chest Pain / Angina, Hy pertension Additional Past Medical History / Comment(s): Mitral valve, Anemia History of Any Multi-Drug Resistant Organisms: None Reported Past Surgical History: Hernia Repair Additional Past Surgical History / Comment(s): Renal Biopsy Past Psychological History: No Psychological Hx Reported Smoking Status: Never smoker Past Alcohol Use History: None Reported Past Drug Use History: None Reported - Past Family History Son(s) Family Medical History: Diabetes Mellitus Medications and Allergies Home Medications Medication Instructions Recorded Confirmed Type Cyanocobalamin (Vitamin B-12) 1,000 mcg PO DAILY 30 Days #30 tab 05/18/22 05/20/22 Rx [Vitamin B-12] Furosemide [Lasix] 20 mg PO BID 30 Days #60 tab 05/18/22 05/20/22 Rx Ipratropium-Albuterol Nebulize 3 ml INHALATION RT-Q12H PRN 30 05/18/22 05/20/22 Rx [Duoneb 0.5 mg-3 mg/3 ml Soln] Days #60 each Levothyroxine Sodium [Euthyrox] 50 mcg PO DAILY #30 tablet 05/18/22 05/20/22 Rx Metoprolol Tartrate [Lopressor] 25 mg PO BID 30 Days #60 tab 05/18/22 05/20/22 Rx risperiDONE [RisperDAL] 0.25 mg PO BID #6 tab 05/18/22 05/20/22 Rx Atorvastatin [Lipitor] 20 mg PO DIRECTED 05/20/22 05/20/22 History Simvastatin [Zocor] 20 mg PO HS 05/20/22 05/20/22 History Allergies Allergy/AdvReac Type Severity Reaction Status Date / Time No Known Allergies Allergy Verified 05/20/22 13:27 Surgical - Exam Vital Signs Temp Pulse Resp BP Pulse Ox 98 F 106 H 16 93/49 92 L 05/20/22 05:27 05/20/22 05:27 05/20/22 05:27 05/20/22 05:27 05/20/22 05:27 Results - Labs 05/22/22 06:21 05/22/22 06:21 Abnormal Lab Results - Last 24 Hours (Table) 05/21/22 05/22/22 05/22/22 Range/Units 09:58 06:21 06:21 WBC 1.68 L (4.50-10.00) X 10*3/uL RBC 2.41 L (4.40-5.60) X 10*6/uL Hgb 8.2 L (13.0-17.0) g/dL Hct 25.4 L (39.6-50.0) % MCV 105.4 H (80.0-97.0) fL MCH 34.0 H (27.0-32.0) pg RDW 23.7 H (11.5-14.5) % Absolute Nucleated RBC 0.08 H (0.00-0.00) X 10*3/uL Neutrophils # 0.52 L (1.80-7.70) X 10*3/uL Monocytes # 0.15 L (0.20-1.00) X 10*3/uL Eosinophils # 0.03 L (0.04-0.35) X 10*3/uL NRBC/100 WBC Diff 4.8 H (0.0-0.0) /100 WBCS Carbon Dioxide 28.8 H (20.0-27.5) mmol/L BUN 39.5 H (9.0-27.0) mg/dL Est GFR (CKD-EPI)AfAm 53.2 L (60.0-200.0) Est GFR (CKD-EPI)NonAf 45.9 L (60.0-200.0) BUN/Creatinine Ratio 27.62 H (12.00-20.00) Ratio Crossmatch See Detail Diabetes panel 05/22/22 Range/Units 06:21 Sodium 140 (135-145) mmol/L Potassium 4.4 (3.5-5.5) mmol/L Chloride 101 (96-109) mmol/L Carbon Dioxide 28.8 H (20.0-27.5) mmol/L BUN 39.5 H (9.0-27.0) mg/dL Creatinine 1.4 (0.6-1.5) mg/dL Glucose 105 (70-110) mg/dL Calcium 8.7 (8.7-10.3) mg/dL Calcium panel 05/22/22 Range/Units 06:21 Calcium 8.7 (8.7-10.3) mg/dL Pituitary panel 05/22/22 Range/Units 06:21 Sodium 140 (135-145) mmol/L Potassium 4.4 (3.5-5.5) mmol/L Chloride 101 (96-109) mmol/L Carbon Dioxide 28.8 H (20.0-27.5) mmol/L BUN 39.5 H (9.0-27.0) mg/dL Creatinine 1.4 (0.6-1.5) mg/dL Glucose 105 (70-110) mg/dL Calcium 8.7 (8.7-10.3) mg/dL Adrenal panel 05/22/22 Range/Units 06:21 Sodium 140 (135-145) mmol/L Potassium 4.4 (3.5-5.5) mmol/L Chloride 101 (96-109) mmol/L Carbon Dioxide 28.8 H (20.0-27.5) mmol/L BUN 39.5 H (9.0-27.0) mg/dL Creatinine 1.4 (0.6-1.5) mg/dL Glucose 105 (70-110) mg/dL Calcium 8.7 (8.7-10.3) mg/dL
--- NOTE | 2022-05-22 15:45 | P.PN ---
Subjective Progress Note Date: 05/22/22 Patient is 81-year-old male with history of dementia which is very much advanced came from senior living because of [place] patient was found to have atrial fibrillation and troponin elevation because of which patient was transferred to [facility]. Patient had a normal ejection fraction the past also found to have elevated proBNP patient cannot provide any history to me patient is presently on IV Cardizem and is in atrial fibrillation. Patient heart rate is well controlled patient had a GI bleed in the past on anti-correlation because of which patient is not anticoagulated as an outpatient. 05/21/2022 Patient is evaluated on medical floor today. No acute complaints, no evidence for black tarry or kayode red stools. Continue to monitor closely. He reports some mild abdominal tenderness, mostly epigastric with palpation. Possibly some gastritis. Patient was recently worked up for acute anemia and was evaluated by hematology. GI did not scope patient previous admission as his hemoglobin stabilized, tolerated diet and also had no evidence for GI bleeding while being monitored in hospital. He is status post 1 unit PRBC for hgb of 6.8 today. He continues to have abnormal hematology panel, his white count today 1.68, has evidence of nucleated RBC's. His previous hospital stay show high levels of free kappa and lambda light chains. Pending repeat labs tomorrow possibly consult hematology for further evaluation. He continues in atrial fibrillation, he was taken off his blood thinner previous admission secondary to possible GI bleed with low hemoglobin. He did receive IV heparin in the ER this hospital stay which could have exacerbated the low blood count. 05/22/2022 Patient evaluated today status post 1 unit PRBC hemoglobin is 8.2. Staff reports 1 BM this morning normal color, no evidence for black/bloody stools, no emesis. He has worsening epigastric tenderness today. Maintained off anticoagulation. Discussed with hematology felt previous work up reveals blood count abnormalities likely not from underlying pathology. Discussed with general s lily patient will under go endoscopy on for further evaluation. Chest xray continues to show interstitial edema. on oral lasix. Review of Systems Constitutional: Denied any fatigue denied any fever. Cardio vascular: denied any chest pain, palpitations Gastrointestinal: denied any nausea, vomiting, diarrhea, epigastric abdominal pain. Pulmonary: Denied any shortness of breath cough Neurologic denied any new focal deficits All inpatient medications were reviewed and appropriate changes in these medications as dictated in the interval history and assessment and plan. PHYSICAL EXAMINATION: GENERAL: The patient is alert and oriented x1-2, not in any acute distress. Well developed, well nourished. HEENT: Pupils are round and equally reacting to light. EOMI. No scleral icterus. No conjunctival pallor. Normocephalic, atraumatic. No pharyngeal erythema. No thyromegaly. CARDIOVASCULAR: S1 and S2 present. No murmurs, rubs, or gallops. PULMONARY: Chest is clear to auscultation, no wheezing or crackles. ABDOMEN: Soft, mild epigastric tenderness, nondistended, normoactive bowel sounds. No palpable organomegaly. MUSCULOSKELETAL: No joint swelling or deformity. EXTREMITIES: No cyanosis, clubbing, or pedal edema. NEUROLOGICAL: Gross neurological examination did not reveal any focal deficits. Generalized weakness SKIN: No rashes. Assessment and plan Assessment -Anemia possiby acute GI bleed most likely upper although no evidence for melena or black stool, no emesis reported, patient was recently admitted for anemia and was found to have leukopenia, his blood thinner was stopped and he was conservatively managed at that time and was recommended for outpatient follow. Anemia possibly exacerbated by IV heparin this admission. -Leukopenia patient has undergone work up for this recently at [facility] and was also evaluated by hematology previous admission with bone marrow suppression from medications in the differential. Do not have reports to review from [place]. -Atrial fibrillation patient rate is well controlled patient is presently not on anticoagulation patient has chronic persistent A. fib -Altered mental status possible from metabolic encephalopathy, with underlying advanced dementia. Patient had increased confusion it seems from the senior living. -Mild troponin elevation secondary to possible atrial fibrillation cardiology evaluated the patient no clear evidence for ACS -Congestive failure chronic diastolic dysfunction with mild acute exacerbation Transitioned to oral lasix. -Thin built male, BMI is within range at 22.5. GI prophylaxis IV protonix DVT prophylaxis: Currently held Plan Monitor hemoglobin. General surgery consulted and patient will undergo endoscopy . Patient will most likely need subacute rehab on discharge. Continue current diet and monitor for GI bleeding. Seroquel at bedtime. The impression and plan of care has been dictated by Josselyn Miller Nurse Practitioner as directed. Dr. Sahil MD I have performed a history and physical examination and medical decision making of this patient, discussed the same with the dictator, and agree with the di ctators assessment and plan as written, documented as a scribe. Based on total visit time, I have performed more than 50% of this visit. Objective - Vital Signs Vital signs: Vital Signs Temp 97.3 F L 05/22/22 11:05 Pulse 91 05/22/22 11:05 Resp 17 05/22/22 11:05 BP 111/59 05/22/22 11:05 Pulse Ox 95 05/22/22 11:05 FiO2 Intake & Output 05/21/22 05/22/22 05/22/22 18:59 06:59 18:59 Intake Total 490 Output Total 550 Balance -60 Weight 65.5 kg 65.3 kg Intake: Oral 180 Blood Product 310 Rc Irr As1 Unit 310 [id number] Output: Urine 550 Other: Voiding Method Toilet Toilet Urinal Urinal Diaper Incontinent # Voids 5 3 - Labs CBC & Chem 7: 05/22/22 06:21 05/22/22 06:21 Labs: Abnormal Lab Results - Last 24 Hours (Table) 05/21/22 05/22/22 05/22/22 Range/Units 09:58 06:21 06:21 WBC 1.68 L (4.50-10.00) X 10*3/uL RBC 2.41 L (4.40-5.60) X 10*6/uL Hgb 8.2 L (13.0-17.0) g/dL Hct 25.4 L (39.6-50.0) % MCV 105.4 H (80.0-97.0) fL MCH 34.0 H (27.0-32.0) pg RDW 23.7 H (11.5-14.5) % Absolute Nucleated RBC 0.08 H (0.00-0.00) X 10*3/uL Neutrophils # 0.52 L (1.80-7.70) X 10*3/uL Monocytes # 0.15 L (0.20-1.00) X 10*3/uL Eosinophils # 0.03 L (0.04-0.35) X 10*3/uL NRBC/100 WBC Diff 4.8 H (0.0-0.0) /100 WBCS Carbon Dioxide 28.8 H (20.0-27.5) mmol/L BUN 39.5 H (9.0-27.0) mg/dL Est GFR (CKD-EPI)AfAm 53.2 L (60.0-200.0) Est GFR (CKD-EPI)NonAf 45.9 L (60.0-200.0) BUN/Creatinine Ratio 27.62 H (12.00-20.00) Ratio Crossmatch See Detail Assessment and Plan Time with Patient: Less than 30
[2022-05-22] MEDS: QUEtiapine 25 MG TAB PO SCH (20:29)
[2022-05-23] MEDS: METOPROLOL TARTRATE 25 MG TAB PO SCH ×5 (01:17→20:50)
[2022-05-23] MEDS: PANTOPRAZOLE 40 MG/10 ML VIAL IVP SCH ×2 (08:48→20:50)
[2022-05-23] MEDS: FUROSEMIDE 40 MG TAB PO SCH ×3 (08:48→17:17)
[2022-05-23 10:51] LABS: NRBC Per 100 WBC 4.2 /100 WBCS (0.0-0.0)
[2022-05-23 10:53] LABS: Anisocytosis (M) 2+; Basophils # (A) 0.01 X 10*3/uL (0.00-0.10); Basophils % (A) 0.8 %; Eosinophils # (A) 0.02 X 10*3/uL (0.04-0.35); Eosinophils % (A) 1.7 %; HCT 26.7 % (39.6-50.0); HGB 8.3 g/dL (13.0-17.0); Immature Grans, Automated 2.5 %; Lymphocytes # (A) 0.67 X 10*3/uL (0.90-5.00); Lymphocytes % (A) 56.8 %; MCH 33.5 pg (27.0-32.0); MCHC 31.1 g/dL (32.0-37.0); MCV 107.7 fL (80.0-97.0); Macrocytosis (M) 2+; Mean Platelet Volume 11.4 fL (9.5-12.2); Monocytes % (A) 8.5 %; Neutrophils # (A) 0.35 X 10*3/uL (1.80-7.70); Neutrophils % (A) 29.7 %; Platelet Count 210 X 10*3/uL (140-440); RBC 2.48 X 10*6/uL (4.40-5.60); RDW 22.6 % (11.5-14.5); WBC 1.18 X 10*3/uL (4.50-10.00)
--- NOTE | 2022-05-23 13:00 | P.PN ---
Subjective Progress Note Date: 05/23/22 CHIEF COMPLAINT: Anemia HISTORY OF PRESENT ILLNESS: Patient lying in bed comfortably. Today he denies any abdominal pain. He has been having brown stools. No black or bloody stools reported per nursing staff. Patient seen by cardiology regarding his chest pain and elevated troponins and A. fib. there is no evidence of acute coronary syndrome per cardiology. Patient denies any nausea vomiting. Tolerating diet. Afebrile. White count is low at 1.1 hemoglobin stable at 8.3 platelets 210. Patient has bedside sitter PHYSICAL EXAM: VITAL SIGNS: Reviewed. GENERAL: Well-developed in no acute distress. HEENT: No sclera icterus. Extraocular movements grossly intact. Moist buccal mucosa. Head is atraumatic, normocephalic. ABDOMEN: Soft. Nondistended. Nontender. NEUROLOGIC: Alert and oriented. Cranial nerves II through XII grossly intact. ASSESSMENT: 1. Macrocytic anemia 2. Epigastric abdominal pain 3. Leukopenia 4. History of dementia PLAN: -Patient scheduled tentatively for EGD tomorrow with Dr. montelongo depending on WBC level -Continue monitoring hemoglobin -Okay for regular diet today and then nothing by mouth after midnight Physician Cement Mixer Driver note has been reviewed by physician. Signing provider agrees with the documented findings, assessment, and plan of care. Objective - Vital Signs Vital signs: Vital Signs Temp 97.6 F 05/23/22 07:30 Pulse 44 L 05/23/22 07:30 Resp 17 05/23/22 07:30 BP 96/50 05/23/22 07:30 Pulse Ox 95 05/23/22 07:30 FiO2 Intake & Output 05/22/22 05/23/22 05/23/22 18:59 06:59 18:59 Intake Total 450 Balance 450 Weight 65.3 kg 64.4 kg Intake: Oral 450 Other: Voiding Method Toilet Toilet Urinal Urinal Diaper Diaper Incontinent Incontinent # Voids 1 2 # Bowel Movements 1 - Labs CBC & Chem 7: 05/23/22 06:52 05/22/22 06:21 Labs: Abnormal Lab Results - Last 24 Hours (Table) 05/23/22 Range/Units 06:52 WBC 1.18 L* (4.50-10.00) X 10*3/uL RBC 2.48 L (4.40-5.60) X 10*6/uL Hgb 8.3 L (13.0-17.0) g/dL Hct 26.7 L (39.6-50.0) % MCV 107.7 H (80.0-97.0) fL MCH 33.5 H (27.0-32.0) pg MCHC 31.1 L (32.0-37.0) g/dL RDW 22.6 H (11.5-14.5) % Absolute Nucleated RBC 0.05 H (0.00-0.00) X 10*3/uL Neutrophils # 0.35 L* (1.80-7.70) X 10*3/uL Lymphocytes # 0.67 L (0.90-5.00) X 10*3/uL Monocytes # 0.10 L (0.20-1.00) X 10*3/uL Eosinophils # 0.02 L (0.04-0.35) X 10*3/uL NRBC/100 WBC Diff 4.2 H (0.0-0.0) /100 WBCS
--- NOTE | 2022-05-23 17:35 | P.PN ---
Subjective Progress Note Date: 05/23/22 Patient is 81-year-old male with history of dementia which is very much advanced came [place] [facility] [place] of [place] patient was found to have atrial fibrillation and troponin elevation because of which patient was transferred to [facility]. Patient had a normal ejection fraction the past also found to have elevated proBNP patient cannot provide any history to me patient is presently on IV Cardizem and is in atrial fibrillation. Patient heart rate is well controlled patient had a GI bleed in the past on anti-correlation because of which patient is not anticoagulated as an outpatient. 05/21/2022 Patient is evaluated on medical floor today. No acute complaints, no evidence for black tarry or kayode red stools. Continue to monitor closely. He reports some mild abdominal tenderness, mostly epigastric with palpation. Possibly some gastritis. Patient was recently worked up for acute anemia and was evaluated by hematology. GI did not scope patient previous admission as his hemoglobin stabilized, tolerated diet and also had no evidence for GI bleeding while being monitored in hospital. He is status post 1 unit PRBC for hgb of 6.8 today. He continues to have abnormal hematology panel, his white count today 1.68, has evidence of nucleated RBC's. His previous hospital stay show high levels of free kappa and lambda light chains. Pending repeat labs tomorrow possibly consult hematology for further evaluation. He continues in atrial fibrillation, he was taken off his blood thinner previous admission secondary to possible GI bleed with low hemoglobin. He did receive IV heparin in the ER this hospital stay which could have exacerbated the low blood count. 05/22/2022 Patient evaluated today status post 1 unit PRBC hemoglobin is 8.2. Staff reports 1 BM this morning normal color, no evidence for black/bloody stools, no emesis. He has worsening epigastric tenderness today. Maintained off anticoagulation. Discussed with hematology felt previous work up reveals blood count abnormalities likely not from underlying pathology. Discussed with general s lily patient will under go endoscopy on for further evaluation. Chest xray continues to show interstitial edema. on oral lasix. 05/23/2022 Patient is evaluated today. There has been no evidence for GI bleeding however he does have some epigastric tenderness. Hemoglobin stable today at 8.3. Plan to undergo endoscopy tomorrow. He has some confusion with baseline dementia and is maintained on seroquel HS. Blood pressure improved up to 123/60. Review of Systems Constitutional: Denied any fatigue denied any fever. Cardio vascular: denied any chest pain, palpitations Gastrointestinal: denied any nausea, vomiting, diarrhea, epigastric abdominal pain. Pulmonary: Denied any shortness of breath cough Neurologic denied any new focal deficits All inpatient medications were reviewed and appropriate changes in these medications as dictated in the interval history and assessment and plan. PHYSICAL EXAMINATION: GENERAL: The patient is alert and oriented x1-2, not in any acute distress. Well developed, well nourished. HEENT: Pupils are round and equally reacting to light. EOMI. No scleral icterus. No conjunctival pallor. Normocephalic, atraumatic. No pharyngeal erythema. No thyromegaly. CARDIOVASCULAR: S1 and S2 present. No murmurs, rubs, or gallops. PULMONARY: Chest is clear to auscultation, no wheezing or crackles. ABDOMEN: Soft, mild epigastric tenderness, nondistended, normoactive bowel sounds. No palpable organomegaly. MUSCULOSKELETAL: No joint swelling or deformity. EXTREMITIES: No cyanosis, clubbing, or pedal edema. NEUROLOGICAL: Gross neurological examination did not reveal any focal deficits. Generalized weakness SKIN: No rashes. Assessment and plan Assessment -Anemia possiby acute GI bleed most likely upper although no evidence for melena or black stool, no emesis reported, patient was recently admitted for anemia and was found to have leukopenia, his blood thinner was stopped and he was conservatively managed at that time and was recommended for outpatient follow. Anemia possibly exacerbated by IV heparin this admission. -Leukopenia patient has undergone work up for this recently at [facility] and was also evaluated by hematology previous admission with bone marrow suppression from medications in the differential. Do not have reports to review from [place]. -Atrial fibrillation patient rate is well controlled patient is presently not on anticoagulation patient has chronic persistent A. fib -Altered mental status possible from metabolic encephalopathy, with underlying advanced dementia. Patient had increased confusion it seems from the half-way. -Mild troponin elevation secondary to possible atrial fibrillation cardiology evaluated the patient no clear evidence for ACS -Congestive failure chronic diastolic dysfunction with mild acute exacerbation Transitioned to oral lasix. -Thin built male, BMI is within range at 22.5. GI prophylaxis IV protonix DVT prophylaxis: Currently held Plan Monitor hemoglobin. General surgery consulted and patient will undergo endoscopy . Patient will most likely need subacute rehab on discharge. Continue current diet and monitor for GI bleeding. Seroquel at bedtime. The impression and plan of care has been dictated by Josselyn Miller, Nurse Practitioner as directed. Dr. Sahil MD I have performed a history and physical examination and medical decision making of this patient, discussed the same with the dictator, and agree with the dictators assessment and plan as written, documented as a scribe. Based on total visit time, I have performed more than 50% of this visit. Objective - Vital Signs Vital signs: Vital Signs Temp 97.8 F 05/23/22 11:16 Pulse 100 05/23/22 11:16 Resp 18 05/23/22 11:16 BP 123/60 05/23/22 11:16 Pulse Ox 99 05/23/22 11:16 FiO2 Intake & Output 05/22/22 05/23/22 05/23/22 18:59 06:59 18:59 Intake Total 450 Balance 450 Weight 65.3 kg 64.4 kg Intake: Oral 450 Other: Voiding Method Toilet Toilet Urinal Urinal Diaper Diaper Incontinent Incontinent # Voids 1 1 # Bowel Movements 1 - Labs CBC & Chem 7: 05/23/22 06:52 05/22/22 06:21 Labs: Abnormal Lab Results - Last 24 Hours (Table) 05/23/22 Range/Units 06:52 WBC 1.18 L* (4.50-10.00) X 10*3/uL RBC 2.48 L (4.40-5.60) X 10*6/uL Hgb 8.3 L (13.0-17.0) g/dL Hct 26.7 L (39.6-50.0) % MCV 107.7 H (80.0-97.0) fL MCH 33.5 H (27.0-32.0) pg MCHC 31.1 L (32.0-37.0) g/dL RDW 22.6 H (11.5-14.5) % Absolute Nucleated RBC 0.05 H (0.00-0.00) X 10*3/uL Neutrophils # 0.35 L* (1.80-7.70) X 10*3/uL Lymphocytes # 0.67 L (0.90-5.00) X 10*3/uL Monocytes # 0.10 L (0.20-1.00) X 10*3/uL Eosinophils # 0.02 L (0.04-0.35) X 10*3/uL NRBC/100 WBC Diff 4.2 H (0.0-0.0) /100 WBCS Assessment and Plan Time with Patient: Less than 30
[2022-05-23] MEDS: QUEtiapine 25 MG TAB PO SCH (20:50)
[2022-05-24] MEDS ORDERED: LEVOTHYROXINE 50 MCG TAB PO SCH (06:30)
[2022-05-24 07:07] LABS: Anisocytosis Moderate; HCT 27.9 % (39.0-53.0); Hypochromasia Moderate; MCH 34.3 pg (25.0-35.0); MCHC 32.4 g/dL (31.0-37.0); MCV 105.9 fL (80.0-100.0); Macrocytosis Marked; Mean Platelet Volume 10.1; Platelet Count 309 k/uL (150-450); Poikilocytosis Slight; RBC 2.64 m/uL (4.30-5.90); RDW 20.5 % (11.5-15.5)
[2022-05-24 07:13] LABS: WBC 1.3 k/uL (3.8-10.6)
[2022-05-24 08:30] LABS: Eosinophils # (M) 0.05 k/uL (0-0.7); Lymphocytes # (M) 0.92 k/uL (1.0-4.8); Monocytes # (M) 0.13 k/uL (0-1.0); Neutrophils % (M) 15 %; Nucleated Red Blood Cells 3 /100 WBC (0-0); Total Cells Counted 100
[2022-05-24 08:32] LABS: Polychromasia Present
[2022-05-24 08:33] LABS: RBC Fragments Present
[2022-05-24] MEDS: PANTOPRAZOLE 40 MG/10 ML VIAL IVP SCH (08:40)
[2022-05-24] MEDS: METOPROLOL TARTRATE 25 MG TAB PO SCH (08:40)
[2022-05-24] MEDS: FUROSEMIDE 40 MG TAB PO SCH (08:41)
[2022-05-24] MEDS ORDERED: risperiDONE 0.25 MG TAB PO SCH (09:00)
[2022-05-24] MEDS ORDERED: LIDOCAINE 2% INJ 20 MG/ML (2 ML VIAL) ONE (11:45)
[2022-05-24] MEDS ORDERED: PROPOFOL 10 MG/ML 20 ML VIAL IV ONE (11:45)
[2022-05-24] MEDS ORDERED: SODIUM CHLORIDE 0.9% 500 ML 500 ML IV ONE (11:59)
--- NOTE | 2022-05-24 11:59 | P.OP ---
Date of Procedure: 05/24/22 Preoperative Diagnosis: Gastritis Postoperative Diagnosis: Mild antral gastritis Procedure(s) Performed: EGD Anesthesia: MAC Surgeon: Tate Morales Pathology: other (Antrum) Condition: stable Disposition: PACU Description of Procedure: The patient's placed on the endoscopy table in the lateral position. He received IV sedation. The gastroscope placed oropharynx passed in the esophagus into the stomach. Scope was then placed through the pylorus. The first and second portion of the duodenum appeared normal. Scope was then brought back the antrum this was mildly inflamed. A biopsies performed. The scope was unretroflexed and remainder the stomach appeared normal. The GE junction was at 40 cm per the distal esophagus appeared normal. The proximal esophagus.. Scope withdrawn for patient.
[2022-05-24 12:00] VITALS: BP 106/60; PULSE 75; RESP 17; TEMP 97.6
[2022-05-24 15:13] LABS: African American GFR (CKD) 66 (>60 ml/min/1.73 sqM); Anion Gap 6 mmol/L; Blood Urea Nitrogen 35 mg/dL (9-20); Carbon Dioxide 31 mmol/L (22-30); Chloride 99 mmol/L (98-107); Glucose 91 mg/dL (74-99); Magnesium 1.8 mg/dL (1.6-2.3); Non-African American GFR(CKD) 57 (>60 ml/min/1.73 sqM); Potassium 4.3 mmol/L (3.5-5.1); Sodium 136 mmol/L (137-145)
[2022-05-24] MEDS ORDERED: ATORVASTATIN 10 MG TAB PO SCH (21:00)
--- NOTE | 2022-05-25 23:18 | P.DS ---
Providers Date of admission: 05/20/22 05:27 Attending physician: Citlali Tejeda Consults: 05/20/22 05:27 Consult Physician Routine Consulting Provider: Marty Magdaleno Consult Reason/Comments: nstemi Do you want consulting provider notified?: Yes 05/22/22 12:26 Consult Physician Routine Consulting Provider: Tate Morales Consult Reason/Comments: epigastric pain and tenderness with drop in hemoglobin Do you want consulting provider notified?: Yes Primary care physician: [place] [facility] Course: Final Diagnosis -Anemia possiby acute GI bleed most likely upper although no evidence for melena or black stool, no emesis reported, patient was recently admitted for anemia and was found to have leukopenia, his blood thinner was stopped and he was conservatively managed at that time and was recommended for outpatient follow. Anemia possibly exacerbated by IV heparin this admission. -Mild antral gastritis found on EGD -Leukopenia patient has undergone work up for this recently at [facility] and was also evaluated by hematology previous admission with bone marrow suppression from medications in the differential. Do not have reports to review from [place]. -Atrial fibrillation patient rate is well controlled patient is presently not on anticoagulation patient has chronic persistent A. fib -Altered mental status possible from metabolic encephalopathy, with underlying advanced dementia. Patient had increased confusion it seems from the assisted. -Mild troponin elevation secondary to possible atrial fibrillation cardiology evaluated the patient no clear evidence for ACS -Congestive failure chronic diastolic dysfunction with mild acute exacerbation Transitioned to oral lasix. -Thin built male, BMI is within range at 22.5. Full Code Discharge Disposition Patient is stable for discharge home. Status post EGD with no evidence for acute bleed. Recommend to continue off lovenox and aspirin at this time until follow up. Recommend to see Dr. Jos Luevano and Dr. Johnson in 1 to 2 weeks. Monitor for black or bloody bowel movements. Repeat labs in 2 to 3 days. Patient will continue on protonix twice a day for 2 weeks and resume protonix 40 mg daily. Hospital Course Patient is 81-year-old male with history of dementia which is very much advanced came from assisted because of altered mental status initially had been transferred to [facility], patient was found to have atrial fibrillation and troponin elevation because of which patient was transferred to [facility]. Patient had a normal ejection fraction in the past also found to have elevated proBNP. Patient is a poor historian, most of the history is taken from the medical record and also family. This is his second admission to the hospital in the last few weeks. He was not scoped his previous admission and was monitored and treated conservatively. He has had no evidence of melena, or bloody stool. He does have some epigstric tenderness and family reports he does drink alcohol frequently. He was started on IV Cardizem and is in atrial fibrillation. Cardiology was consulted and patient was treated with IV lasix as well, his chest xray shows evidence of mild interstitial edema. Patient heart rate is well controlled patient had a GI bleed in the past on anti-coagulation because of which patient is not anticoagulated as an outpatient. Had been started on IV heparin in the ER which likely exacerbated gastritis and hemoglobin dropped to 6.8. Patient received 1 unit of blood this admission. He also underwent upper endoscopy by general surgery revealing mild antral gastritis and biopsies were taken. Recommend to continue on protonix twice a day for 2 weeks and decrease to 40 mg daily. He was also evaluated by PT this admission and recommend patient for safe DC home and family is agreeable to take him home. He lives with his grand daughter who helps care for him. 05/24/2022 Patient is evaluated in his room post EGD. He reports no chest pain, no shortness of breath. He reports no abdominal pain, no nausea, vomiting, or diarrhea. He has been tolerating diet. Has some mild confusion which is baseline secondary to history of dementia. His lungs are clear today, S1 S2 auscultated continues in atrial fibrillation with controlled rate. Abdomen is soft and nontender and epigastric tenderness has resolved. Hemoglobin today 9.0, white count 1.3. Sodium 136, BUN 35, creatinine 1.19, magnesium 1.8. Patient will be discharged today and recommend to follow up with GI and hematology services on discharge with additional recommendations as above. Please see medication reconciliation for a list of current medication. Thank you for allowing us to participate in the care of this patient. The impression and plan of care has been dictated by Josselyn Miller, Nurse Practitioner as directed. Dr. Sahil MD I have performed a history and physical examination and medical decision making of this patient, discussed the same with the dictator, and agree with the dictators assessment and plan as written, documented as a scribe. Based on total visit time, I have performed more than 50% of this visit. Patient Condition at Discharge: Stable Plan - Discharge Summary Discharge Rx Participant: No New Discharge Prescriptions: New Furosemide [Lasix] 40 mg PO 0900,1600 #60 tablet Pantoprazole [Protonix] 40 mg PO DIRECTED 30 Days #45 tab Continue Metoprolol Tartrate [Lopressor] 25 mg PO BID 30 Days #60 tab Levothyroxine Sodium [Euthyrox] 50 mcg PO DAILY #30 tablet Ipratropium-Albuterol Nebulize [Duoneb 0.5 mg-3 mg/3 ml Soln] 3 ml INHALATION RT-Q12H PRN 30 Days #60 each PRN Reason: Shortness Of Breath risperiDONE [RisperDAL] 0.25 mg PO BID #6 tab Cyanocobalamin (Vitamin B-12) [Vitamin B-12] 1,000 mcg PO DAILY 30 Days #30 tab Simvastatin [Zocor] 20 mg PO HS Atorvastatin [Lipitor] 20 mg PO HS #0 Discontinued Furosemide [Lasix] 20 mg PO BID 30 Days #60 tab Discharge Medication List Cyanocobalamin (Vitamin B-12) [Vitamin B-12] 1,000 mcg PO DAILY 30 Days #30 tab 05/18/22 [Rx] Ipratropium-Albuterol Nebulize [Duoneb 0.5 mg-3 mg/3 ml Soln] 3 ml INHALATION RT-Q12H PRN 30 Days #60 each 05/18/22 [Rx] Levothyroxine Sodium [Euthyrox] 50 mcg PO DAILY #30 tablet 05/18/22 [Rx] Metoprolol Tartrate [Lopressor] 25 mg PO BID 30 Days #60 tab 05/18/22 [Rx] risperiDONE [RisperDAL] 0.25 mg PO BID #6 tab 05/18/22 [Rx] Simvastatin [Zocor] 20 mg PO HS 05/20/22 [History] Atorvastatin [Lipitor] 20 mg PO HS #0 05/24/22 [Rx] Furosemide [Lasix] 40 mg PO 0900,1600 #60 tablet 05/24/22 [Rx] Pantoprazole [Protonix] 40 mg PO DIRECTED 30 Days #45 tab 05/24/22 [Rx] Follow up Appointment(s)/Referral(s): Marty Magdaleno MD [STAFF PHYSICIAN] - 1 Week (office will call you with appointment date/time) Sis Johnson MD [STAFF PHYSICIAN] - 1 Week Saira Luevano MD [STAFF PHYSICIAN] - 05/31/22 2:30 pm Osmani Villaseñor DO [Primary Care Provider] - 05/28/22 10:15 am Tate Morales MD [STAFF PHYSICIAN] - 06/14/22 2:45 pm Ambulatory/Diagnostic Orders: Basic Metabolic Panel [LAB.AMB] Time Frame: 3 Days, Location: None Selected Complete Blood Count w/diff [LAB.AMB] Time Frame: 3 Days, Location: None Selected Patient Instructions/Handouts: Gastritis (DC), Diet for Stomach Ulcers and Gastritis (ED) Activity/Diet/Wound Care/Special Instructions: Recommend to stay off lovenox and aspirin at this time Continue on protonix twice a day for 2 weeks than decrease to 40 mg po daily Follow up with GI services and hematology Follow up with cardiology Recommend to see primary provider in 1 to 2 days. Repeat labs CBC and BMP in 2 to 3 days. Notify provider and return to emergency center if you experience any black or bloody stools or any emesis that is bloody/black or appears as coffee grounds. Continue on lasix twice a day Discharge Disposition: HOME SELF-CARE
== END 2022-05-24 16:02 | disposition home or self-care (01) | DRG 308 ==
LOC: EC 05:17 → 3SCARD 05:27 → 5NMEDONC 15:45
PROVIDERS: ADMIT Hospitalist; ATTEND Hospitalist
PROC: 30233N1 Transfusion of Nonautologous Red Blood Cells into Peripheral Vein, Percutaneous Approach (ICD-10-PCS; 2022-05-21)
PROC: 0DB78ZX Excision of Stomach, Pylorus, Via Natural or Artificial Opening Endoscopic, Diagnostic (ICD-10-PCS; principal; 2022-05-24 11:30)
DX: I48.19 Other persistent atrial fibrillation (principal); G93.41 Metabolic encephalopathy; K29.71 Gastritis, unspecified, with bleeding; I50.33 Acute on chronic diastolic (congestive) heart failure; D68.32 Hemorrhagic disorder due to extrinsic circulating anticoagulants; D62 Acute posthemorrhagic anemia; F03.90 Unspecified dementia, unspecified severity, without behavioral disturbance, psychotic disturbance, mood disturbance, and anxiety; I11.0 Hypertensive heart disease with heart failure; D53.9 Nutritional anemia, unspecified; I08.1 Rheumatic disorders of both mitral and tricuspid valves; I25.10 Atherosclerotic heart disease of native coronary artery without angina pectoris; D72.819 Decreased white blood cell count, unspecified; R77.8 Other specified abnormalities of plasma proteins; Z28.310 Unvaccinated for COVID-19; Z79.899 Other long term (current) drug therapy; Z79.890 Hormone replacement therapy
CPT/HCPCS: 43239; 71046; 80048; 80053; 81003; 83735; 84100; 84484; 85025; 85730; 86850; 86900; 86901; 86920; 88305; 93005; 96365; 96366; 96368; 96375; 99285

== ENCOUNTER 2022-06-03 14:39 | Emergency (ER) | payer MEDICARE, OTHER ==
[2022-06-03 15:03] VITALS: RESP 18
[2022-06-03] MEDS ORDERED: methylPREDNISolone SOD SUCCI 125 MG/2 ML VIAL IV STA (15:26)
[2022-06-03] MEDS ORDERED: ALBUTEROL HFA INHALER INHALATION STA (15:26)
[2022-06-03 16:05] LABS: Anisocytosis Moderate; HCT 34.5 % (39.0-53.0); HGB 9.3 gm/dL (13.0-17.5); Hypochromasia Moderate; MCH 28.7 pg (25.0-35.0); MCV 106.6 fL (80.0-100.0); Macrocytosis Marked; Platelet Count 344 k/uL (150-450); Poikilocytosis Slight; RBC 3.24 m/uL (4.30-5.90); RDW 20.4 % (11.5-15.5)
[2022-06-03 16:07] LABS: Calcium 8.4 mg/dL (8.4-10.2); Potassium 4.4 mmol/L (3.5-5.1)
--- NOTE | 2022-06-03 16:16 | XR ---
EXAMINATION TYPE: XR chest 2V DATE OF EXAM: 06/03/2022 COMPARISON: 05/22/2022 HISTORY: Back pain TECHNIQUE: 2 view FINDINGS: Heart is enlarged. There is mild pulmonary congestion. No definite pleural effusion. Bony t horax is intact. IMPRESSION: There is evidence for some mild heart failure without much change compared to old exam.
--- NOTE | 2022-06-03 16:48 | ED ---
General Adult HPI - General Chief complaint: Upper Respiratory Infection Stated complaint: back pain, SOB Time Seen by Provider: 06/03/22 15:20 Source: patient, family, RN notes reviewed, old records reviewed Mode of arrival: wheelchair Limitations: no limitations - History of Present Illness Initial comments: Patient is an 81-year-old male with past medical history remarkable for dementia, cardiac disease, COPD as he is a prior smoker presents from his apartment family over concern for exposure to upper respiratory infection. He has been eating, drinking well. Only complaints is a productive cough of a grayish mucus which is new for him. No exertional dyspnea. No chest pain, abdominal pain, nausea, vomiting. No diarrhea. Family members that he stays with have been having similar symptoms. He denies any fevers. He was vaccinated for Covid. His no other acute complaints at this time. Presents for further evaluation at this time. Family is concerned for upper respiratory infection. - Related Data Home Medications Medication Instructions Recorded Confirmed Simvastatin [Zocor] 20 mg PO HS 05/20/22 05/20/22 Previous Rx's Medication Instructions Recorded Cyanocobalamin (Vitamin B-12) 1,000 mcg PO DAILY 30 Days #30 tab 05/18/22 [Vitamin B-12] Ipratropium-Albuterol Nebulize 3 ml INHALATION RT-Q12H PRN 30 05/18/22 [Duoneb 0.5 mg-3 mg/3 ml Soln] Days #60 each Levothyroxine Sodium [Euthyrox] 50 mcg PO DAILY #30 tablet 05/18/22 Metoprolol Tartrate [Lopressor] 25 mg PO BID 30 Days #60 tab 05/18/22 risperiDONE [RisperDAL] 0.25 mg PO BID #6 tab 05/18/22 Atorvastatin [Lipitor] 20 mg PO HS #0 05/24/22 Furosemide [Lasix] 40 mg PO 0900,1600 #60 tablet 05/24/22 Pantoprazole [Protonix] 40 mg PO DIRECTED 30 Days #45 05/24/22 tab Oseltamivir [Tamiflu] 75 mg PO Q12HR 5 Days #10 cap 06/03/22 predniSONE [Deltasone] 40 mg PO DAILY 5 Days #10 tab 06/03/22 Allergies Allergy/AdvReac Type Severity Reaction Status Date / Time No Known Allergies Allergy Verified 06/03/22 15:03 Review of Systems ROS Statement: Those systems with pertinent positive or pertinent negative responses have been documented in the HPI. Review of Systems: CONST: Denies fever EYES: Denies blurry vision ENT: Endorses nasal congestion, cough C/V: Denies Chest pain RESP: Denies shortness of breath GI: Denies abdominal pain : Denies dysuria SKIN: Denies rash. MSK: Denies joint pain. NEURO: Denies headache ROS Other: All systems not noted in ROS Statement are negative. Past Medical History Past Medical History: Coronary Artery Disease (CAD), Chest Pain / Angina, Hypertension Additional Past Medical History / Comment(s): Mitral valve, Anemia History of Any Multi-Drug Resistant Organisms: None Reported Past Surgical History: Hernia Repair Additional Past Surgical History / Comment(s): Renal Biopsy Past Psychological History: No Psychological Hx Reported Smoking Status: Never smoker Past Alcohol Use History: None Reported Past Drug Use History: None Reported - Past Family History Son(s) Family Medical History: Diabetes Mellitus General Exam - General Exam Comments Initial Comments: General: Appears in no acute distress. HEAD: Normal with no signs of head trauma. EYES: PERRLA, EOMI, conjunctiva normal, no discharge. ENT: Hearing grossly intact, normal oropharynx. Mild rhinorrhea. No stridor. RESPIRATORY: Mild bilateral end expiratory wheezing. No hypoxia. No respiratory distress. C/V: Regular rate and rhythm. S1 and S2 auscultated. Peripheral pulses 2+ intact throughout. Chronic lower extremity edema which is unchanged from baseline. ABD: Abd is soft, nontender, nondistended EXT: Normal range of motion, no obvious deformity SKIN: No rashes or lesions observed on exposed skin. NEURO: Alert and oriented 3-4. Baseline dementia. Is currently at his baseline per family. Limitations: no limitations Course Vital Signs 06/03/22 06/03/22 06/03/22 14:55 14:56 15:55 Temperature 98.8 F 98.8 F Pulse Rate 61 61 106 H Respiratory 18 18 18 Rate Blood Pressure 105/51 105/51 O2 Sat by Pulse 95 95 95 Oximetry 06/03/22 06/03/22 17:03 18:00 Temperature 97.9 F Pulse Rate 122 H 103 H Respiratory 18 18 Rate Blood Pressure 102/70 117/84 O2 Sat by Pulse 95 98 Oximetry Medical Decision Making - Medical Decision Making Was pt. sent in by a medical professional or institution? @ -No Did you speak to anyone other than the patient for history? @ -Yes. Family members, who are able to provide history including of the patient has been around family members with similar upper respiratory symptoms. Did you review nursing and triage notes? @ -Yes. Agreed. Except patient denies any significant low back pain. Were old charts reviewed? @ -Yes. Prior EKGs, admissions. Differential Diagnosis? @ -Pneumonia, infection, viral syndrome, bronchitis, COPD exacerbation. This l ist is not all encompassing.. EKG interpreted by me (3pts min.)? @ -Yes. See note. X-rays interpreted by me (1pt min.)? @ -Yes. Chest x-ray reveals no acute cardio pulmonary process, infiltrate. CT interpreted by me (1pt min.)? @ -none U/S interpreted by me (1pt. min.)? @ -none What testing was considered but not performed? (CT, X-rays, U/S, labs)? Why? @None What meds were considered but not given? Why? @ -none Did you discuss the management of the patient with other professionals? @ -No Did you reconcile home meds? @ -none Was smoking cessation discussed for >3mins.? @ -none Was critical care preformed (if so, how long)? @ -none Were there social determinants of health that impacted care today? How? (Homelessness, low income, unemployed, alcoholism, drug addiction, transportation, low edu. Level, literacy, decrease access to med. care, prison, rehab)? @ -None Was there de-escalation of care discussed even if they declined? (Discuss DNR or withdrawal of care, Hospice)? @ -No What co-morbidities impacted this encounter? (DM, HTN, Smoking, COPD, CAD, Cancer, CVA, Hep., AIDS, mental health diagnosis, sleep apnea, morbid obesity)? @ -COPD, history of atrial fibrillation Was patient admitted / discharged? @ -Based on the patient's presentation and physical exam, there was concern for acute infectious process for his current symptoms. He also appears to have a mild COPD exacerbation. Was given an albuterol inhaler as well as IV steroids. We'll also obtain basic laboratory studies, as well as chest x-ray, viral swabs. Family and the patient was in agreement with this plan. Vital signs within acceptable limits. Chest x-ray as interpreted by myself revealed no evidence of acute cardio pulmonary process, infiltrate. Laboratory studies were remarkable for a chronic leukopenia with a white blood cell count 1.6, a chronic macrocytic anemia with a stable hemoglobin of 9.3. Patient is influenza A positive, RSV and Covid negative. I discussed the findings with the patient is was family members. Vital signs remained within except for limits. Wheezing is improved. I do believe it is safe for him to be discharged home at this time. His symptoms have been ongoing for the last 2-3 days, and I did recommend Tamiflu for him. Especially c onsidering his age as well as comorbidities. They were in agreement this plan. Strict return precautions were discussed. He'll be given a dose of Tamiflu prior to discharge. Patient has albuterol inhalers and breathing treatments at home and does not require refill. I will provide the patient with a prescription for Tamiflu, prednisone. I instructed the patient to follow up with their PCP in the next 1-3 days. I explained that the patient should return to the emergency department if they experience any worsening symptoms. Strict return precautions were discussed with the patient. The patient expressed understanding of these instructions. I answered all questions that the patient had. The patient was discharged home in good condition with their prescriptions and follow up information. Undiagnosed new problem with uncertain prognosis? @ -Acute influenza A infection Drug Therapy requiring intensive monitoring for toxicity (Heparin, Nitro, Insulin, Cardizem)? @ -none Were any procedures done? @ -none Diagnosis/symptom? @ -Acute influenza A infection, acute COPD exacerbation Acute, or Chronic, or Acute on Chronic? @ -Acute influenza infection, acute COPD exacerbation Uncomplicated (without systemic symptoms) or Complicated (systemic symptoms)? @ -Complicated Side effects of treatment? @ -none Exacerbation, Progression, or Severe Exacerbation] @ -COPD exacerbation Poses a threat to life or bodily function? @ -Possibly, patient does risk worsening respiratory status which can cause significant morbidity and mortality secondary to his influenza infection and COPD exacerbation. - Lab Data Result diagrams: 06/03/22 15:46 06/03/22 15:46 Lab Results 06/03/22 06/03/22 06/03/22 Range/Units 15:46 15:46 15:55 WBC 1.6 L (3.8-10.6) k/uL RBC 3.24 L (4.30-5.90) m/uL Hgb 9.3 L (13.0-17.5) gm/dL Hct 34.5 L (39.0-53.0) % MCV 106.6 H (80.0-100.0) fL MCH 28.7 (25.0-35.0) pg MCHC 27.0 L (31.0-37.0) g/dL RDW 20.4 H (11.5-15.5) % Plt Count 344 (150-450) k/uL MPV 10.0 Neutrophils % (Manual) 66 % Band Neuts % (Manual) 2 % Lymphocytes % (Manual) 30 % Monocytes % (Manual) 2 % Neutrophils # (Manual) 1.00 L (1.3-7.7) k/uL Lymphocytes # (Manual) 0.48 L (1.0-4.8) k/uL Monocytes # (Manual) 0.03 (0-1.0) k/uL Nucleated RBCs 12 H (0-0) /100 WBC Manual Slide Review Performed Hypochromasia Moderate Poikilocytosis Slight Anisocytosis Moderate Macrocytosis Marked A Sodium 140 (137-145) mmol/L Potassium 4.4 (3.5-5.1) mmol/L Chloride 105 (98-107) mmol/L Carbon Dioxide 24 (22-30) mmol/L Anion Gap 11 mmol/L BUN 48 H (9-20) mg/dL Creatinine 1.25 (0.66-1.25) mg/dL Est GFR (CKD-EPI)AfAm 63 (>60 ml/min/1.73 sqM) Est GFR (CKD-EPI)NonAf 54 (>60 ml/min/1.73 sqM) Glucose 145 H (74-99) mg/dL Calcium 8.4 (8.4-10.2) mg/dL Influenza Type A (PCR) Detected A (Not Detectd) Influenza Type B (PCR) Not Detected (Not Detectd) RSV (PCR) Not Detected (Not Detectd) SARS-CoV-2 (PCR) Not Detected (Not Detectd) - EKG Data -: EKG Interpreted by Me EKG Comments: 12-lead Electrocardiogram Interpretation Note EKG was reviewed and interpreted by myself. 12-lead ECG performed at 1510 is interpreted by me as revealing atrial fibrillation with PVCs. At a rate of 126 beats per minute. [place] is normal. QRS durations 114 ms, QTc is 434 ms.. There were no ST or T wave abnormalities to suggest myocardial ischemia or injury. R wave progression across the precordium was satisfactory. By my interpretation this EKG is non-diagnostic for acute ischemia. When compared with prior Prior EKG, no sleeping change. Heart rate is improved. Disposition Clinical Impression: COPD with acute exacerbation, Novel influenza A respiratory infection Disposition: HOME SELF-CARE Condition: Good Instructions (If sedation given, give patient instructions): Influenza (ED), Upper Respiratory Infection (ED) Prescriptions: predniSONE [Deltasone] 40 mg PO DAILY 5 Days #10 tab Oseltamivir [Tamiflu] 75 mg PO Q12HR 5 Days #10 cap Is patient prescribed a controlled substance at d/c from ED?: No Referrals: Osmani Villaseñor DO [Primary Care Provider] - 1-2 days Time of Disposition: 17:35
[2022-06-03] MEDS ORDERED: KETOROLAC 15 MG/ML 1 ML VIAL IVP STA (16:49)
[2022-06-03 17:10] LABS: Band Neutrophils % 2 %; Lymphocytes # (M) 0.48 k/uL (1.0-4.8); Monocytes # (M) 0.03 k/uL (0-1.0); Neutrophils % (M) 66 %; Nucleated Red Blood Cells 12 /100 WBC (0-0); Total Cells Counted 100; WBC 1.6 k/uL (3.8-10.6)
[2022-06-03] MEDS ORDERED: OSELTAMIVIR 75 MG CAP PO STA (17:52)
[2022-06-03 18:06] VITALS: BP 117/84; PULSE 103; TEMP 97.9
== END 2022-06-03 18:06 | disposition home or self-care (01) ==
LOC: EC 14:39
DX: J44.1 Chronic obstructive pulmonary disease with (acute) exacerbation (principal); J10.1 Influenza due to other identified influenza virus with other respiratory manifestations; I10 Essential (primary) hypertension; I25.10 Atherosclerotic heart disease of native coronary artery without angina pectoris; Z20.822 Contact with and (suspected) exposure to COVID-19
CPT/HCPCS: 36415; 94640; 93005; 80048; 85025; 87636; 71046; 99285; 96374; J2930